=== PATIENT | female | born 1940 | race Hispanic/Latino ===

== ENCOUNTER 2017-08-19 17:23 | Inpatient (IN) | payer MEDICARE ==
[2017-08-19] MEDS ORDERED: Iohexol 240 (50 ml) PO ONE (19:09)
--- NOTE | 2017-08-19 19:34 | ED PDOC ---
HPI: General Adult Time Seen by Provider: 08/19/17 18:50 Chief Complaint (Nursing): Abdominal Pain History Per: Patient, Family (son), Other (Dr. Coelho) Additional Complaint(s): Pt. states for > 1 week she's had epigastric pain radiating to the back. Reports symptoms are worse after eating. States that she was seen in [facility] ED on Thursday and had blood work done and was subsequently discharged. She was contacted today by Dr. Coelho who told her to come to ED for further evaluation as she had +blood cultures. Denies chest pain, N/V/D, fever, SOB, palpitations. As per Dr. Coelho (phone conversation), pt. had gram positive cocci in chains via blood cultures and is requesting for pt. to be admitted. Past Medical History Reviewed: Historical Data, Nursing Documentation, Vital Signs Vital Signs: Last Vital Signs Temp 98.7 F 08/19/17 17:50 Pulse 78 08/19/17 17:50 Resp 16 08/19/17 17:50 BP 190/76 H 08/19/17 17:50 Pulse Ox 98 08/19/17 17:50 - Medical History PMH: Diabetes, Hypercholesterolemia Denies: Chronic Kidney Disease - Surgical History Surgical History: No Surg Hx - Family History Family History: States: Diabetes - Home Medications Home Medications: Ambulatory Orders Medication Instructions Recorded Glipizide [Glipizide ER] 10 mg PO DAILY 12/10/15 Insulin Glargine,Hum.rec.anlog 37 units SC DAILY 12/10/15 [Lantus] Metformin Hydrochloride [Metformin] 500 mg PO DAILY 12/10/15 Rosuvastatin Calcium [Crestor] 10 mg PO DAILY 12/10/15 Sitagliptin Phosphate [Januvia] 100 mg PO DAILY 12/10/15 Atorvastatin [Lipitor] 20 mg PO DAILY #0 tab 12/11/15 GlipiZIDE SR [Glucotrol XL] 10 mg PO DAILY@0800 #0 tab 12/11/15 SITagliptin [Januvia] 100 mg PO DAILY #0 tab 12/11/15 amLODIPine [Norvasc] 2.5 mg PO DAILY 12/11/15 amLODIPine [Norvasc] 2.5 mg PO DAILY #0 tab 12/11/15 - Allergies Allergies/Adverse Reactions: Allergies Allergy/AdvReac Type Severity Reaction Status Date / Time No Known Allergies Allergy Verified 12/10/15 15:58 Review of Systems ROS Statement: Except As Marked, All Systems Reviewed And Found Negative Gastrointestinal: Positive for: Abdominal Pain Physical Exam - Reviewed Nursing Documentation Reviewed: Yes Vital Signs Reviewed: Yes - Physical Exam Appears: Positive for: Well, Non-toxic, No Acute Distress Head Exam: Positive for: ATRAUMATIC, NORMAL INSPECTION, NORMOCEPHALIC Skin: Positive for: Normal Color, Warm. Negative for: Rash Eye Exam: Positive for: EOMI, Normal appearance, PERRL ENT: Positive for: Normal ENT Inspection Neck: Positive for: Normal, Painless ROM Cardiovascular/Chest: Positive for: Regular Rate, Rhythm Respiratory: Positive for: CNT, Normal Breath Sounds Gastrointestinal/Abdominal: Positive for: Normal Exam, Bowel Sounds, Soft. Negative for: Tenderness Back: Positive for: Normal Inspection Extremity: Positive for: Normal ROM Neurologic/Psych: Positive for: Alert, Oriented - ECG ECG: Positive for: Interpreted By Me ECG Rhythm: Positive for: Sinus Bradycardia. Negative for: ST/T Changes Rate: 59 O2 Sat by Pulse Oximetry: 98 - Radiology X-Ray: Interpreted by Me (CXR) - Progress ED Course And Treament: Case d/w Dr. Coelho who confirms story and requests that pt. be admitted. Requests CT abd/pelvis to be done and for pt. to be given Vancomycin IV after cultures. Labs ordered. CT abd/pelvis ordered. Disposition - Clinical Impression Clinical Impression: Abdominal pain in female - Patient ED Disposition Is Patient to be Admitted: Transfer of Care (Signed out to Tanisha BARON pending results.) - Disposition Disposition Time: 20:00 Condition: STABLE
[2017-08-19 19:55] LABS: BASO % 0.6 % (0.0-2.0); EOS # 0.1 K/uL (0.0-0.7); EOS % 1.7 % (0.0-4.0); LYMPH # 2.6 K/uL (1.0-4.3); LYMPH % 35.5 % (20.0-40.0); MEAN CELL VOLUME 92.4 fl (81.0-99.0); MEAN CORPUSCULAR HEMOGLOBIN 31.1 pg (27.0-31.0); MEAN CORPUSCULAR HGB CONC 33.7 g/dL (33.0-37.0); MEAN PLATELET VOLUME 8.5 fl (7.2-11.7); MONO # 0.7 K/uL (0.0-0.8); MONO % 9.7 % (0.0-10.0); NEUT # 3.9 K/uL (1.8-7.0); NEUT % 52.5 % (50.0-75.0); RED CELL DISTRIBUTION WIDTH 13.8 % (11.5-14.5); WHITE BLOOD COUNT 7.3 K/uL (4.8-10.8)
[2017-08-19 20:05] LABS: ALB/GLOB RATIO 1.6 (1.0-2.1); ALKALINE PHOSPHATASE 63 U/L (38-126); ALT/SGPT 31 U/L (9-52); AST/SGOT 28 U/L (14-36); BILIRUBIN,TOTAL 0.4 mg/dl (0.2-1.3); BLOOD UREA NITROGEN 13 mg/dl (7-17); CALCIUM 9.5 mg/dL (8.4-10.2); CARBON DIOXIDE 25 mmol/L (22-30); CHLORIDE 108 mmol/L (98-107); GFR AFRICAN-AMERICAN > 60; GLUCOSE,RANDOM 143 mg/dL (65-105); LIPASE 93 U/L (23-300); POTASSIUM 4.9 MMOL/L (3.6-5.0); SODIUM 143 mmol/l (132-148); TOTAL PROTEIN 6.8 G/DL (6.3-8.2)
[2017-08-19 20:11] LABS: VENOUS BLOOD GAS BASE EXCESS 0.1 mmol/L (0.0-2.0); VENOUS BLOOD GAS PCO2 56 mmHg (40-60)
[2017-08-19] MEDS ORDERED: Piperacillin/Tazobact 3.375 GM in Sodium Chloride 0.9% 100 ML IVPB STA (20:14)
[2017-08-19] MEDS ORDERED: Iohexol 240 (50 ml) ONE (20:14)
[2017-08-19 20:45] LABS: RBC URINE 2 /hpf (0-3); URINE BILIRUBIN NEGATIVE (NEGATIVE); URINE BLOOD NEGATIVE (NEGATIVE); URINE COLOR STRAW (YELLOW); URINE GLUCOSE (UA) NEG (Normal); URINE KETONE NEGATIVE (NEGATIVE); URINE LEUKOCYTE ESTERASE NEG Leu/uL (Negative); URINE PROTEIN NEGATIVE (NEGATIVE); URINE UROBILINOGEN 0.2-1.0 mg/dL (0.2-1.0); WBC URINE < 1 /hpf (0-5)
[2017-08-19] MEDS ORDERED: Piperacillin/Tazobact 3.375 gm Inj IVPB ONE (21:00)
[2017-08-19] MEDS ORDERED: Iohexol 300 100 ML IJ ONE (21:21)
[2017-08-19] MEDS ORDERED: Sodium Chloride 0.9% 50 ML IV ONE (21:21)
--- NOTE | 2017-08-19 22:29 | CT ---
EXAM: CT Abdomen and Pelvis With Intravenous Contrast EXAM DATE/TIME: 08/19/2017 7:09 PM CLINICAL HISTORY: 77 years old, female; Pain; Abdominal pain; Epigastric; Additional info: Epigastric abdominal pain TECHNIQUE: Axial computed tomography images of the abdomen and pelvis with intravenous contrast. All CT scans at this facility use one or more dose reduction techniques, viz.: automated exposure control; ma/kV adjustment per patient size (including targeted exams where dose is matched to indication; i.e. head); or iterative reconstruction technique. Coronal and sagittal reformatted images were created and reviewed. CONTRAST: 90 mL of [id number] administered intravenously. COMPARISON: CT - ABD PELVIS PO IV CONTRAST 12/10/2015 7:44:30 PM FINDINGS: The liver is normal. The spleen is normal. The pancreas is normal. No gallstones. A horseshoe kidney is present. The small bowel appears normal. A moderate amount of stool is present throughout the colon. A normal appendix is identified axial images 105 - 114. Again seen is very faint increase density within the mesentery of the left upper quadrant with a few small scattered lymph nodes unchanged. Again seen is a right adnexal mass composed mainly of fat density however also containing peripheral calcification. It is unchanged in size measuring 4.1 x 3.1 cm and has imaging characteristics supportive of a dermoid. Extensive degenerative changes are present in the line with large osteophyte formation L1-L3. IMPRESSION: No acute findings.
--- NOTE | 2017-08-19 22:54 | ED PDOC ---
- Laboratory Results Result Diagrams: 08/19/17 19:30 08/19/17 19:30 - ECG O2 Sat by Pulse Oximetry: 98 - Progress ED Course And Treament: Case endorsed to content writer from Tess BARON pending CT and admission. EXAM: CT Abdomen and Pelvis With Intravenous Contrast EXAM DATE/TIME: 08/19/2017 7:09 PM CLINICAL HISTORY: 77 years old, female; Pain; Abdominal pain; Epigastric; Additional info: Epigastric abdominal pain TECHNIQUE: Axial computed tomography images of the abdomen and pelvis with intravenous contrast. All CT scans at this facility use one or more dose reduction techniques, viz.: automated exposure control; ma/kV adjustment per patient size (including targeted exams where dose is matched to indication; i.e. head); or iterative reconstruction technique. Coronal and sagittal reformatted images were created and reviewed. CONTRAST: 90 mL of administered intravenously. COMPARISON: CT - ABD PELVIS PO IV CONTRAST 12/10/2015 7:44:30 PM FINDINGS: The liver is normal. The spleen is normal. The pancreas is normal. No gallstones. A horseshoe kidney is present. The small bowel appears normal. A moderate amount of stool is present throughout the colon. A normal appendix is identified axial images 105 - 114. Again seen is very faint increase density within the mesentery of the left upper quadrant with a few small scattered lymph nodes unchanged. Again seen is a right adnexal mass composed mainly of fat density however also containing peripheral calcification. It is unchanged in size measuring 4.1 x 3.1 cm and has imaging characteristics supportive of a dermoid. Extensive degenerative changes are present in the line with large osteophyte formation L1-L3. IMPRESSION: No acute findings. Patient to be admitted as discussed on previous shift. Disposition - Clinical Impression Clinical Impression: Abdominal pain in female, Bacteremia - POA Present On Arrival: None - Disposition Disposition: Routine/Home Disposition Time: 23:28 Condition: FAIR
[2017-08-19] MEDS ORDERED: DiphenhydrAMINE 50 mg/ml Inj IV ONE (23:42)
[2017-08-20] MEDS ORDERED: GlipiZIDE 10 mg SR Tab PO SCH (09:00)
[2017-08-20] MEDS: Insulin Regular 100 units/ml SC SCH ×4 (09:20→22:36)
[2017-08-20] MEDS: Enoxaparin 40 mg Syringe SC SCH (09:21)
[2017-08-20] MEDS: GlipiZIDE 5 mg SR Tab PO SCH (09:22)
[2017-08-20] MEDS: Piperacillin/Tazobact 3.375 GM in Sodium Chloride 0.9% 100 ML IVPB SCH ×2 (10:03→21:11)
--- NOTE | 2017-08-20 10:16 | RAD ---
HISTORY: epigastric abdominal pain COMPARISON: Comparison is made to 05/31/2015 so FINDINGS: LUNGS: No active pulmonary disease. PLEURA: No significant pleural effusion identified, no pneumothorax apparent. CARDIOVASCULAR: Normal. OSSEOUS STRUCTURES: No significant abnormalities. VISUALIZED UPPER ABDOMEN: Normal. OTHER FINDINGS: None. IMPRESSION: No active disease.
--- NOTE | 2017-08-20 10:48 | CARD ---
APPROVED REPORT EKG Measurement Heart [id number] <Conclusion> Sinus bradycardia Moderate voltage criteria for LVH, may be normal variant Borderline ECG
--- NOTE | 2017-08-20 12:21 | CP.PCM.HP ---
History of Present Illness - History of Present Illness History of Present Illness: Patient c/o same generalized malaise with abdominal pain and weakness. She was seen in ER and eventually discharged. In ER she had a blood culture that was positive for gram positive cocci in chain. The patient was admired for further evaluation and IV antibx. Previously she was treated with oral broad spectrum antibx with no resolution of the general symptoms. Will follow culture and sensitivity. She had an allergic reaction to vancomicin. Patient with severe co morbidity DM, CAD, HTN. Present on Admission - Present on Admission Any Indicators Present on Admission: No Review of Systems - Constitutional Constitutional: As Per HPI - EENT Eyes: As Per HPI - Cardiovascular Cardiovascular: As Per HPI - Respiratory Respiratory: As Per HPI - Gastrointestinal Gastrointestinal: As Per HPI - Musculoskeletal Musculoskeletal: As Per HPI - Integumentary Integumentary: As Per HPI - Neurological Neurological: As Per HPI - Psychiatric Psychiatric: As Per HPI Past Patient History - Past Medical History & Family History Past Medical History?: Yes - Past Social History Smoking Status: Never Smoked - CARDIAC Hx Hypercholesterolemia: Yes - PULMONARY Hx Respiratory Disorders: No Other/Comment: influenza - NEUROLOGICAL Hx Neurological Disorder: No - HEENT Hx HEENT Problems: No - RENAL Hx Chronic Kidney Disease: No - ENDOCRINE/METABOLIC Hx Endocrine Disorders: Yes Hx Diabetes Mellitus Type 2: Yes Other/Comment: peripheral neuropathy, ketosis - HEMATOLOGICAL/ONCOLOGICAL Hx Blood Disorders: No Hx Hepatitis C: Yes - INTEGUMENTARY Hx Dermatological Problems: No - MUSCULOSKELETAL/RHEUMATOLOGICAL Hx Musculoskeletal Disorders: No Hx Falls: No - GASTROINTESTINAL Hx Gastrointestinal Disorders: No - GENITOURINARY/GYNECOLOGICAL Hx Genitourinary Disorders: No - PSYCHIATRIC Hx Psychophysiologic Disorder: No Hx Substance Use: No - SURGICAL HISTORY Hx Surgeries: Yes Other/Comment: toe surgery - ANESTHESIA Hx Anesthesia: No Hx Anesthesia Reactions: No Hx Malignant Hyperthermia: No Meds Allergies/Adverse Reactions: Allergies Allergy/AdvReac Type Severity Reaction Status Date / Time No Known Allergies Allergy Verified 12/10/15 15:58 Physical Exam - Constitutional Appears: Non-toxic - Head Exam Head Exam: ATRAUMATIC, NORMAL INSPECTION, NORMOCEPHALIC - Eye Exam Eye Exam: Normal appearance - ENT Exam ENT Exam: Mucous Membranes Moist - Neck Exam Neck exam: Positive for: Full Rom - Respiratory Exam Respiratory Exam: Clear to Auscultation Bilateral - Cardiovascular Exam Cardiovascular Exam: REGULAR RHYTHM, +S1, +S2 - GI/Abdominal Exam GI & Abdominal Exam: Normal Bowel Sounds - Neurological Exam Neurological exam: Alert, CN II-XII Intact, Oriented x3 Results - Vital Signs Recent Vital Signs: Last Vital Signs Temp 98.6 F 08/20/17 07:40 Pulse 71 08/20/17 09:21 Resp 18 08/20/17 07:40 BP 134/78 08/20/17 09:21 Pulse Ox 99 08/20/17 07:40 - Labs Result Diagrams: 08/19/17 19:30 08/19/17 19:30 Labs: Laboratory Results - last 24 hr 08/19/17 08/19/17 08/19/17 19:30 19:30 19:30 WBC 7.3 RBC 4.11 Hgb 12.8 Hct 38.0 MCV 92.4 MCH 31.1 H MCHC 33.7 RDW 13.8 Plt Count 230 MPV 8.5 Neut % (Auto) 52.5 Lymph % (Auto) 35.5 [place] % (Auto) 9.7 Eos % (Auto) 1.7 Baso % (Auto) 0.6 Neut # 3.9 Lymph # 2.6 [place] # 0.7 Eos # 0.1 Baso # 0.0 pO2 VBG pH VBG pCO2 VBG HCO3 VBG Total CO2 VBG O2 Sat (Calc) VBG Base Excess VBG Potassium Glucose Lactate FiO2 Sodium 143 Potassium 4.9 Chloride 108 H Carbon Dioxide 25 Anion Gap 15 BUN 13 Creatinine 0.7 Est GFR ( Amer) > 60 Est GFR (Non-Af Amer) > 60 POC Glucose (mg/dL) 167 H Random Glucose 143 H Calcium 9.5 Total Bilirubin 0.4 AST 28 ALT 31 Alkaline Phosphatase 63 Troponin I < 0.0120 Total Protein 6.8 Albumin 4.2 Globulin 2.6 Albumin/Globulin Ratio 1.6 Lipase 93 TSH 3rd Generation Venous Blood Potassium Urine Color Urine Clarity Urine pH Ur Specific [place] Urine Protein Urine Glucose (UA) Urine Ketones Urine Blood Urine Nitrate Urine Bilirubin Urine Urobilinogen Ur Leukocyte Esterase Urine RBC (Auto) Urine Microscopic WBC 08/19/17 08/19/17 08/20/17 20:00 20:26 04:54 WBC RBC Hgb Hct MCV MCH MCHC RDW Plt Count MPV Neut % (Auto) Lymph % (Auto) [place] % (Auto) Eos % (Auto) Baso % (Auto) Neut # Lymph # [place] # Eos # Baso # pO2 19 L VBG pH 7.30 L VBG pCO2 56 VBG HCO3 23.0 VBG Total CO2 29.3 H VBG O2 Sat (Calc) 31.3 L VBG Base Excess 0.1 VBG Potassium 4.1 Glucose 147 H Lactate 1.9 FiO2 21.0 Sodium 142.0 Potassium Chloride 107.0 Carbon Dioxide Anion Gap BUN Creatinine Est GFR ( Amer) Est GFR (Non-Af Amer) POC Glucose (mg/dL) 33 L* Random Glucose Calcium Total Bilirubin AST ALT Alkaline Phosphatase Troponin I Total Protein Albumin Globulin Albumin/Globulin Ratio Lipase TSH 3rd Generation Venous Blood Potassium 4.1 Urine Color Straw Urine Clarity Clear Urine pH 6.0 Ur Specific [place] 1.011 Urine Protein Negative Urine Glucose (UA) Neg Urine Ketones Negative Urine Blood Negative Urine Nitrate Negative Urine Bilirubin Negative Urine Urobilinogen 0.2-1.0 Ur Leukocyte Esterase Neg Urine RBC (Auto) 2 Urine Microscopic WBC < 1 08/20/17 08/20/17 08/20/17 05:45 07:55 10:34 WBC RBC Hgb Hct MCV MCH MCHC RDW Plt Count MPV Neut % (Auto) Lymph % (Auto) [place] % (Auto) Eos % (Auto) Baso % (Auto) Neut # Lymph # [place] # Eos # Baso # pO2 VBG pH VBG pCO2 VBG HCO3 VBG Total CO2 VBG O2 Sat (Calc) VBG Base Excess VBG Potassium Glucose Lactate FiO2 Sodium Potassium Chloride Carbon Dioxide Anion Gap BUN Creatinine Est GFR ( Amer) Est GFR (Non-Af Amer) POC Glucose (mg/dL) 123 H 179 H Random Glucose Calcium Total Bilirubin AST ALT Alkaline Phosphatase Troponin I Total Protein Albumin Globulin Albumin/Globulin Ratio Lipase TSH 3rd Generation 3.75 Venous Blood Potassium Urine Color Urine Clarity Urine pH Ur Specific [place] Urine Protein Urine Glucose (UA) Urine Ketones Urine Blood Urine Nitrate Urine Bilirubin Urine Urobilinogen Ur Leukocyte Esterase Urine RBC (Auto) Urine Microscopic WBC Assessment & Plan (1) Bacteremia Status: Acute (2) Abdominal pain Status: Acute (3) Diabetes Status: Chronic (4) Hyperglycemia Status: Chronic (5) Sepsis Status: Acute (6) Hypertensive cardiovascular disease Status: Chronic - Assessment and Plan (Free Text) Plan: As per orders.
--- NOTE | 2017-08-20 13:29 | CARD ---
APPROVED REPORT EXAM: Two-dimensional and M-mode echocardiogram with Doppler and color Doppler. Other Information Quality : GoodRhythm : NSR INDICATION Hypertension/HCVD 2D DIMENSIONS Left Atrium (2D)3.07 (1.6-4.0cm)IVSd1.40 (0.7-1.1cm) LVDd3.62 (3.9-5.9cm)LVOT Diameter1.98 (1.8-2.4cm) PWd1.15 (0.7-1.1cm)IVSs1.46 (0.8-1.2cm) LVDs3.49 (2.5-4.0cm)FS (%) 3.4 % PWs0.91 (0.8-1.2cm) M-Mode DIMENSIONS Left Atrium (MM)3.35 (2.5-4.0cm)IVSd0.85 (0.7-1.1cm) Aortic Root2.88 (2.2-3.7cm)LVDd5.44 (4.0-5.6cm) Aortic Cusp Exc.1.71 (1.5-2.0cm)PWd0.78 (0.7-1.1cm) IVSs1.10 cmFS (%) 21 % LVDs4.32 (2.0-3.8cm)PWs1.00 cm Mitral Valve MV E Zdskhfzc29.1cm/sMV DECEL [id number] A Wadoifto52.8cm/s MV [id number]/A ratio1.0MVA (PHT)2.86cm2 TDI Lateral E' Peak V9.61cm/sMedial E' Peak V8.56cm/sE/Lateral E'8.3 E/Medial E'9.4 Pulmonary Valve PV Peak Tgpwnlek22.3cm/s Tricuspid Valve TR Peak [id number]/sRAP [id number] Peak Gr.19mmHg [id number] LEFT VENTRICLE The left ventricle is normal size. There is normal left ventricular wall thickness. The left ventricular function is normal. The left ventricular ejection fraction is within the normal range. The Ejection Fraction is 45-50%. There is normal LV segmental wall motion. The left ventricular diastolic function is normal. No left ventricle thrombus noted on this study. There is no mass noted in the left ventricle. RIGHT VENTRICLE The right ventricle is normal size. There is normal right ventricular wall thickness. The right ventricular systolic function is normal. ATRIA The left atrium size is normal. The right atrium size is normal. The interatrial septum is intact with no evidence for an atrial septal defect. AORTIC VALVE The aortic valve is normal in structure and function. No aortic regurgitation is present. There is no aortic valvular stenosis. There is no aortic valvular vegetation. MITRAL VALVE The mitral valve is normal in structure and function. There is no evidence of mitral valve prolapse. There is no mitral valve stenosis. Mitral regurgitation is mild to moderate. TRICUSPID VALVE The tricuspid valve is normal in structure and function. There is no tricuspid valve regurgitation noted. There is no tricuspid valve prolapse or vegetation. There is no tricuspid valve stenosis. PULMONIC VALVE The pulmonary valve is normal in structure and function. There is no pulmonic valvular regurgitation. There is no pulmonic valvular stenosis. GREAT VESSELS The aortic root is normal in size. The IVC is normal in size and collapses >50% with inspiration. PERICARDIAL EFFUSION The pericardium appears normal. There is no pleural effusion. <Conclusion> The left ventricle is normal size. The left ventricular function is normal. The left ventricular ejection fraction is within the normal range. The Ejection Fraction is 45-50%. Mitral regurgitation is mild to moderate.
--- NOTE | 2017-08-20 13:45 | CP.PCM.CON ---
History of Present Illness - History of Present Illness History of Present Illness: Consult requested for evaluation of bacterial endocarditis HPI : 77-year-old [place] female with past medical history significant for diabetes mellitus who was recently seen in [facility] emergency room for evaluation of abdominal discomfort. She had undergone blood cultures which were reported to be positive for gram- positive cocci in clusters. On day 1 she developed some abdominal discomfort and had an episode of emesis. She was subsequently discharged home. Prior to that she was treated for uterine urinary tract infection by Dr. Coelho with IV with p.o. antibiotic course for a week. On this admission she denies having any chest pain shortness of breath palpitations dizziness syncope fevers chills nausea vomiting or diarrhea. Review of Systems - Review of Systems All systems: reviewed and no additional remarkable complaints except - Constitutional Constitutional: As Per HPI - EENT Eyes: As Per HPI Ears: As Per HPI Nose/Mouth/Throat: As Per HPI - Breasts Breasts: As Per HPI - Cardiovascular Cardiovascular: As Per HPI - Respiratory Respiratory: As Per HPI - Gastrointestinal Gastrointestinal: As Per HPI - Genitourinary Genitourinary: As Per HPI - Reproductive: Female Reproductive:Female: As Per HPI - Menstruation Menstruation: As Per HPI - Musculoskeletal Musculoskeletal: As Per HPI - Integumentary Integumentary: As Per HPI - Neurological Neurological: As Per HPI - Psychiatric Psychiatric: As Per HPI - Endocrine Endocrine: As Per HPI - Hematologic/Lymphatic Hematologic: As Per HPI Past Patient History - Past Medical History & Family History Past Medical History?: Yes Pertinent Family History: +ve for HTN - Past Social History Smoking Status: Never Smoked - CARDIAC Hx Hypercholesterolemia: Yes - PULMONARY Hx Respiratory Disorders: No Other/Comment: influenza - NEUROLOGICAL Hx Neurological Disorder: No - HEENT Hx HEENT Problems: No - RENAL Hx Chronic Kidney Disease: No - ENDOCRINE/METABOLIC Hx Endocrine Disorders: Yes Hx Diabetes Mellitus Type 2: Yes Other/Comment: peripheral neuropathy, ketosis - HEMATOLOGICAL/ONCOLOGICAL Hx Blood Disorders: No Hx Hepatitis C: Yes - INTEGUMENTARY Hx Dermatological Problems: No - MUSCULOSKELETAL/RHEUMATOLOGICAL Hx Musculoskeletal Disorders: No Hx Falls: No - GASTROINTESTINAL Hx Gastrointestinal Disorders: No - GENITOURINARY/GYNECOLOGICAL Hx Genitourinary Disorders: No - PSYCHIATRIC Hx Psychophysiologic Disorder: No Hx Substance Use: No - SURGICAL HISTORY Hx Surgeries: Yes Other/Comment: toe surgery - ANESTHESIA Hx Anesthesia: No Hx Anesthesia Reactions: No Hx Malignant Hyperthermia: No Meds Allergies/Adverse Reactions: Allergies Allergy/AdvReac Type Severity Reaction Status Date / Time vancomycin Allergy ITCHING Verified 08/20/17 13:59 - Medications Medications: Current Medications Amlodipine Besylate (Norvasc) 2.5 mg PO DAILY [facility] Last Admin: 08/20/17 09:21 Dose: 2.5 mg Enoxaparin Sodium (Lovenox) 40 mg SC DAILY [facility] PRN Reason: Protocol Stop: 08/23/17 23:59 Last Admin: 08/20/17 09:21 Dose: 40 mg Glipizide (Glucotrol Xl) 5 mg PO DAILY [facility] Last Admin: 08/20/17 09:22 Dose: 5 mg Piperacillin Sod/Tazobactam (Sod 3.375 gm/ Sodium Chloride) 100 mls @ 100 mls/ hr IVPB Q12 [facility] Stop: 08/23/17 23:59 Last Admin: 08/20/17 10:03 Dose: 100 mls/hr Insulin Human Regular (Humulin R) 0 units SC ACCU-CHECK [facility] PRN Reason: Protocol Last Admin: 08/20/17 09:20 Dose: Not Given Lactobacillus Acidophilus (Bacid Acidophilus) 1 cap PO BID [facility] Metformin HCl (Glucophage) 500 mg PO DAILY [facility] Last Admin: 08/20/17 09:19 Dose: Not Given Sitagliptin Phosphate (Januvia) 100 mg PO DAILY [facility] Last Admin: 08/20/17 09:22 Dose: 100 mg Physical Exam - Constitutional Appears: Well - Head Exam Head Exam: ATRAUMATIC, NORMAL INSPECTION, NORMOCEPHALIC - Eye Exam Eye Exam: EOMI, Normal appearance, PERRL Pupil Exam: NORMAL ACCOMODATION, PERRL - ENT Exam ENT Exam: Mucous Membranes Moist, Normal Exam - Neck Exam Neck exam: Positive for: Normal Inspection - Respiratory Exam Respiratory Exam: Clear to Auscultation Bilateral, NORMAL BREATHING PATTERN - Cardiovascular Exam Cardiovascular Exam: REGULAR RHYTHM, +S1, +S2, Systolic Murmur - GI/Abdominal Exam GI & Abdominal Exam: Normal Bowel Sounds, Soft. absent: Tenderness - Rectal Exam Rectal Exam: NORMAL INSPECTION - Extremities Exam Extremities exam: Positive for: normal inspection - Back Exam Back exam: NORMAL INSPECTION - Neurological Exam Neurological exam: Alert, CN II-XII Intact, Normal Gait, Oriented x3, Reflexes Normal - Psychiatric Exam Psychiatric exam: Normal Affect, Normal Mood - Skin Skin Exam: Dry, Intact, Normal Color, Warm Results - Vital Signs Recent Vital Signs: Last Vital Signs Temp 98.6 F 08/20/17 07:40 Pulse 71 08/20/17 09:21 Resp 18 08/20/17 07:40 BP 134/78 08/20/17 09:21 Pulse Ox 99 08/20/17 07:40 - Labs Result Diagrams: 08/19/17 19:30 08/19/17 19:30 Labs: Laboratory Results - last 24 hr 08/19/17 08/19/17 08/19/17 19:30 19:30 19:30 WBC 7.3 RBC 4.11 Hgb 12.8 Hct 38.0 MCV 92.4 MCH 31.1 H MCHC 33.7 RDW 13.8 Plt Count 230 MPV 8.5 Neut % (Auto) 52.5 Lymph % (Auto) 35.5 [place] % (Auto) 9.7 Eos % (Auto) 1.7 Baso % (Auto) 0.6 Neut # 3.9 Lymph # 2.6 [place] # 0.7 Eos # 0.1 Baso # 0.0 pO2 VBG pH VBG pCO2 VBG HCO3 VBG Total CO2 VBG O2 Sat (Calc) VBG Base Excess VBG Potassium Glucose Lactate FiO2 Sodium 143 Potassium 4.9 Chloride 108 H Carbon Dioxide 25 Anion Gap 15 BUN 13 Creatinine 0.7 Est GFR ( Amer) > 60 Est GFR (Non-Af Amer) > 60 POC Glucose (mg/dL) 167 H Random Glucose 143 H Calcium 9.5 Total Bilirubin 0.4 AST 28 ALT 31 Alkaline Phosphatase 63 Troponin I < 0.0120 Total Protein 6.8 Albumin 4.2 Globulin 2.6 Albumin/Globulin Ratio 1.6 Lipase 93 TSH 3rd Generation Venous Blood Potassium Urine Color Urine Clarity Urine pH Ur Specific [place] Urine Protein Urine Glucose (UA) Urine Ketones Urine Blood Urine Nitrate Urine Bilirubin Urine Urobilinogen Ur Leukocyte Esterase Urine RBC (Auto) Urine Microscopic WBC 08/19/17 08/19/17 08/20/17 20:00 20:26 04:54 WBC RBC Hgb Hct MCV MCH MCHC RDW Plt Count MPV Neut % (Auto) Lymph % (Auto) [place] % (Auto) Eos % (Auto) Baso % (Auto) Neut # Lymph # [place] # Eos # Baso # pO2 19 L VBG pH 7.30 L VBG pCO2 56 VBG HCO3 23.0 VBG Total CO2 29.3 H VBG O2 Sat (Calc) 31.3 L VBG Base Excess 0.1 VBG Potassium 4.1 Glucose 147 H Lactate 1.9 FiO2 21.0 Sodium 142.0 Potassium Chloride 107.0 Carbon Dioxide Anion Gap BUN Creatinine Est GFR ( Amer) Est GFR (Non-Af Amer) POC Glucose (mg/dL) 33 L* Random Glucose Calcium Total Bilirubin AST ALT Alkaline Phosphatase Troponin I Total Protein Albumin Globulin Albumin/Globulin Ratio Lipase TSH 3rd Generation Venous Blood Potassium 4.1 Urine Color Straw Urine Clarity Clear Urine pH 6.0 Ur Specific [place] 1.011 Urine Protein Negative Urine Glucose (UA) Neg Urine Ketones Negative Urine Blood Negative Urine Nitrate Negative Urine Bilirubin Negative Urine Urobilinogen 0.2-1.0 Ur Leukocyte Esterase Neg Urine RBC (Auto) 2 Urine Microscopic WBC < 1 08/20/17 08/20/17 08/20/17 05:45 07:55 10:34 WBC RBC Hgb Hct MCV MCH MCHC RDW Plt Count MPV Neut % (Auto) Lymph % (Auto) [place] % (Auto) Eos % (Auto) Baso % (Auto) Neut # Lymph # [place] # Eos # Baso # pO2 VBG pH VBG pCO2 VBG HCO3 VBG Total CO2 VBG O2 Sat (Calc) VBG Base Excess VBG Potassium Glucose Lactate FiO2 Sodium Potassium Chloride Carbon Dioxide Anion Gap BUN Creatinine Est GFR ( Amer) Est GFR (Non-Af Amer) POC Glucose (mg/dL) 123 H 179 H Random Glucose Calcium Total Bilirubin AST ALT Alkaline Phosphatase Troponin I Total Protein Albumin Globulin Albumin/Globulin Ratio Lipase TSH 3rd Generation 3.75 Venous Blood Potassium Urine Color Urine Clarity Urine pH Ur Specific [place] Urine Protein Urine Glucose (UA) Urine Ketones Urine Blood Urine Nitrate Urine Bilirubin Urine Urobilinogen Ur Leukocyte Esterase Urine RBC (Auto) Urine Microscopic WBC Assessment & Plan (1) Bacteremia Assessment and Plan: will f/u echo if repeat Cx +ve will need OLIMPIA for further evaluation Abx per ID and Status: Acute (2) Sepsis Status: Acute (3) Hypertensive cardiovascular disease Status: Chronic (4) Abdominal pain Status: Acute (5) Chest pain Status: Acute
[2017-08-20] MEDS: Lactobacillus Acidophilus 500 MU Cap PO SCH (16:47)
[2017-08-21] MEDS: Insulin Regular 100 units/ml SC SCH ×4 (07:00→21:59)
[2017-08-21] MEDS: GlipiZIDE 5 mg SR Tab PO SCH (09:56)
[2017-08-21] MEDS: Lactobacillus Acidophilus 500 MU Cap PO SCH ×2 (09:56→17:00)
[2017-08-21] MEDS: Enoxaparin 40 mg Syringe SC SCH (09:56)
[2017-08-21] MEDS: Piperacillin/Tazobact 3.375 GM in Sodium Chloride 0.9% 100 ML IVPB SCH (09:57)
--- NOTE | 2017-08-21 11:09 | CP.PCM.PN ---
Subjective - Date & Time of Evaluation Date of Evaluation: 08/21/17 Time of Evaluation: 11:09 - Subjective Subjective: blood cx +ve for strep salivarus no complaints clinically stable Objective - Vital Signs/Intake and Output Vital Signs (last 24 hours): Temp Pulse Resp BP Pulse Ox 98.4 F 65 20 128/69 97 08/21/17 08:02 08/21/17 09:56 08/21/17 08:02 08/21/17 09:56 08/21/17 08:02 - Medications Medications: Current Medications Amlodipine Besylate (Norvasc) 2.5 mg PO DAILY [facility] Last Admin: 08/21/17 09:56 Dose: 2.5 mg Enoxaparin Sodium (Lovenox) 40 mg SC DAILY [facility] PRN Reason: Protocol Stop: 08/23/17 23:59 Last Admin: 08/21/17 09:56 Dose: 40 mg Glipizide (Glucotrol Xl) 5 mg PO DAILY [facility] Last Admin: 08/21/17 09:56 Dose: 5 mg Piperacillin Sod/Tazobactam (Sod 3.375 gm/ Sodium Chloride) 100 mls @ 100 mls/ hr IVPB Q12 [facility] Stop: 08/23/17 23:59 Last Admin: 08/21/17 09:57 Dose: 100 mls/hr Insulin Human Regular (Humulin R) 0 units SC ACCU-CHECK [facility] PRN Reason: Protocol Last Admin: 08/21/17 07:00 Dose: Not Given Lactobacillus Acidophilus (Bacid Acidophilus) 1 cap PO BID [facility] Last Admin: 08/21/17 09:56 Dose: 1 cap Metformin HCl (Glucophage) 500 mg PO DAILY [facility] Last Admin: 08/20/17 09:19 Dose: Not Given Sitagliptin Phosphate (Januvia) 100 mg PO DAILY [facility] Last Admin: 08/21/17 09:56 Dose: 100 mg - Labs Labs: 08/19/17 19:30 08/19/17 19:30 - Constitutional Appears: Well - Head Exam Head Exam: ATRAUMATIC, NORMAL INSPECTION, NORMOCEPHALIC - Eye Exam Eye Exam: EOMI, Normal appearance, PERRL Pupil Exam: NORMAL ACCOMODATION, PERRL - ENT Exam ENT Exam: Mucous Membranes Moist, Normal Exam - Neck Exam Neck Exam: Full ROM, Normal Inspection. absent: Lymphadenopathy - Respiratory Exam Respiratory Exam: Clear to Ausculation Bilateral, NORMAL BREATHING PATTERN - Cardiovascular Exam Cardiovascular Exam: REGULAR RHYTHM, +S1, +S2, Murmur - GI/Abdominal Exam GI & Abdominal Exam: Soft, Normal Bowel Sounds. absent: Tenderness - Extremities Exam Extremities Exam: Full ROM, Normal Capillary Refill, Normal Inspection. absent : Joint Swelling, Pedal Edema - Back Exam Back Exam: NORMAL INSPECTION - Neurological Exam Neurological Exam: Alert, Awake, CN II-XII Intact, Oriented x3 - Psychiatric Exam Psychiatric exam: Normal Affect, Normal Mood - Skin Skin Exam: Dry, Intact, Normal Color, Warm Assessment and Plan (1) Bacteremia Assessment & Plan: +ve Strep salivaris OLIMPIA on thursday Status: Acute (2) Sepsis Assessment & Plan: abx per ID Status: Acute (3) Hypertensive cardiovascular disease Assessment & Plan: home meds Status: Chronic (4) Abdominal pain Status: Acute (5) Chest pain Status: Acute
--- NOTE | 2017-08-21 12:23 | CP.PCM.PN ---
Subjective - Date & Time of Evaluation Date of Evaluation: 08/21/17 Time of Evaluation: 12:23 - Subjective Subjective: No new c/o. Blood culture still pending Objective - Vital Signs/Intake and Output Vital Signs (last 24 hours): Temp Pulse Resp BP Pulse Ox 98.4 F 65 20 128/69 97 08/21/17 08:02 08/21/17 09:56 08/21/17 08:02 08/21/17 09:56 08/21/17 08:02 - Medications Medications: Current Medications Amlodipine Besylate (Norvasc) 2.5 mg PO DAILY [facility] Last Admin: 08/21/17 09:56 Dose: 2.5 mg Enoxaparin Sodium (Lovenox) 40 mg SC DAILY [facility] PRN Reason: Protocol Stop: 08/23/17 23:59 Last Admin: 08/21/17 09:56 Dose: 40 mg Glipizide (Glucotrol Xl) 5 mg PO DAILY [facility] Last Admin: 08/21/17 09:56 Dose: 5 mg Piperacillin Sod/Tazobactam (Sod 3.375 gm/ Sodium Chloride) 100 mls @ 100 mls/ hr IVPB Q12 [facility] Stop: 08/23/17 23:59 Last Admin: 08/21/17 09:57 Dose: 100 mls/hr Insulin Human Regular (Humulin R) 0 units SC ACCU-CHECK [facility] PRN Reason: Protocol Last Admin: 08/21/17 07:00 Dose: Not Given Lactobacillus Acidophilus (Bacid Acidophilus) 1 cap PO BID [facility] Last Admin: 08/21/17 09:56 Dose: 1 cap Metformin HCl (Glucophage) 500 mg PO DAILY [facility] Last Admin: 08/20/17 09:19 Dose: Not Given Sitagliptin Phosphate (Januvia) 100 mg PO DAILY [facility] Last Admin: 08/21/17 09:56 Dose: 100 mg - Labs Labs: 08/19/17 19:30 08/19/17 19:30 - Constitutional Appears: Non-toxic - Head Exam Head Exam: ATRAUMATIC, NORMAL INSPECTION, NORMOCEPHALIC - Eye Exam Eye Exam: Normal appearance - ENT Exam ENT Exam: Mucous Membranes Moist - Respiratory Exam Respiratory Exam: Clear to Ausculation Bilateral - Cardiovascular Exam Cardiovascular Exam: REGULAR RHYTHM, +S1, +S2 - GI/Abdominal Exam GI & Abdominal Exam: Soft, Normal Bowel Sounds - Neurological Exam Neurological Exam: Alert, Awake, CN II-XII Intact, Normal Gait, Oriented x3 - Psychiatric Exam Psychiatric exam: Normal Affect Assessment and Plan (1) Bacteremia Status: Acute (2) Abdominal pain Status: Acute (3) Diabetes Status: Chronic (4) Hyperglycemia Status: Chronic (5) Sepsis Status: Acute (6) Hypertensive cardiovascular disease Status: Chronic - Assessment and Plan (Free Text) Plan: Will follow B/C
--- NOTE | 2017-08-21 12:37 | CP.PCM.CON ---
History of Present Illness - History of Present Illness History of Present Illness: 77-year-old [place] female with past medical history significant for diabetes mellitus and Hepatitis C ( Rx 2014 [place]) who was recently seen in [facility] emergency room for evaluation of abdominal discomfort. She had undergone blood cultures which were reported to be positive for gram- positive cocci . On day 1 she developed some abdominal discomfort and had an episode of emesis. She was subsequently discharged home. Prior to that she was treated for uterine urinary tract infection by Dr. Coelho with IV with p.o. antibiotic course for a week. blood c/s + strep salivarius Review of Systems - Review of Systems All systems: reviewed and no additional remarkable complaints except - Constitutional Constitutional: As Per HPI, Anorexia, Chills - EENT Eyes: absent: As Per HPI, Blind Spots, Blurred Vision, Change in Vision, Decreased Night Vision, Diplopia, Discharge, Dry Eye, Exophthalmos, Floaters, Irritation, Itchy Eyes, Loss of Peripheral Vision, Pain, Photophobia, Requires Corrective Lenses, Sees Flashes, Spots in Vision, Tunnel Vision, Other Visual Disturbances, Loss of Vision, Other Ears: absent: As Per HPI, Decreased Hearing, Ear Discharge, Ear Pain, Tinnitus, Abnormal Hearing, Disequilibrium, Dizziness, Other Nose/Mouth/Throat: absent: As Per HPI, Epistaxis, Nasal Congestion, Nasal Discharge, Nasal Obstruction, Nasal Trauma, Nose Pain, Post Nasal Drip, Sinus Pain, Sinus Pressure, Bleeding Gums, Change in Voice, Dental Pain, Dry Mouth, Dysphagia, Halitosis, Hoarsness, Lip Swelling, Mouth Lesions, Mouth Pain, Odynophagia, Sore Throat, Throat Swelling, Tongue Swelling, Facial Pain, Neck Pain, Neck Mass, Other - Breasts Breasts: absent: As Per HPI, Change in Shape, Mass, Pain, Nipple Discharge, Nipple Inversion, Skin Changes, Swelling, Other - Cardiovascular Cardiovascular: absent: As Per HPI, Acrocyanosis, Chest Pain, Chest Pain at Rest , Chest Pain with Activity, Claudication, Diaphoresis, Dyspnea, Dyspnea on Exertion, Edema, Irregular Heart Rhythm, Pain Radiating to Arm/Neck/Jaw, Leg Edema, Leg Ulcers, Lightheadedness, Orthopnea, Palpitations, Paroxysmal Nocturnal Dyspnea, Pedal Edema, Radiating Pain, Rapid Heart Rate, Slow Heart Rate, Syncope, Other - Respiratory Respiratory: absent: As Per HPI, Cough, Dyspnea, Hemoptysis, Dyspnea on Exertion , Wheezing, Snoring, Stridor, Pain on Inspiration, Chest Congestion, Excessive Mucous Production, Change in Mucous Color, Pain with Coughing, Other - Gastrointestinal Gastrointestinal: As Per HPI - Genitourinary Genitourinary: As Per HPI - Reproductive: Female Reproductive:Female: absent: As Per HPI, Amenorrhea, Amenorrhea/ Control, Currently Menstual, Cycle <21 Days, Cycle >35 Days, Cycle Variable, Menses 1-7 Days, Menses >/= 8 Days, Menses Variable, Cycle > 4 Weeks Between, No Menses for 6 Months, Heavy Menses, Light Menses, Normal Menses, Spotting Between Cycles , S/P Hysterectomy, Menopausal, Post Menopausal, Premenarche, Abnormal Vaginal Bleeding, Dysmenorrhea, Dyspareunia, Genital Lesions, Genital Pruritis, Pelvic Pain, Prolapse Symptoms, Sexual Dysfunction, Vaginal Discharge, Vaginal Dryness , Vaginal Odor, Vaginal Pruritis, Other - Menstruation Menstruation: absent: As Per HPI, Amenorrhea, Amenorrhea/ Control, Currently Menstual, Cycle <21 Days, Cycle >35 Days, Cycle Variable, Menses 1-7 Days, Menses >/= 8 Days, Menses Variable, Cycle > 4 Weeks Between, No Menses for 6 Months, Heavy Menses, Light Menses, Normal Menses, Spotting Between Cycles , S/P Hysterectomy, Menopausal, Post Menopausal, Premenarche, Abnormal Vaginal Bleeding, Dysmenorrhea, Other - Musculoskeletal Musculoskeletal: absent: As Per HPI, Abnormal Gait, Arthralgias, Atrophy, Back Pain, Deformity, Joint Swelling, Limited Range of Motion, Loss of Height, Muscle Cramps, Muscle Weakness, Myalgias, Neck Pain, Numbness, Radiating Pain into Limb, Stiffness, Tingling, Other - Integumentary Integumentary: absent: As Per HPI, Acne, Alopecia, Bleeding Lesions, Change in Hair, Change in Nails, Change in Pigmentation, Changing Lesions, Dry Skin, Erythema, Furuncle, Hirsutism, Lesions, New Lesions, Non-Healing Lesions, Photosensitivity, Pruritus, Rash, Skin Pain, Skin Ulcer, Sores, Striae, Swelling , Unusual Bruising, Wounds, Jaundice, Other - Neurological Neurological: absent: As Per HPI, Abnormal Gait, Abnormal Hearing, Abnormal Movements, Abnormal Speech, Behavioral Changes, Burning Sensations, Confusion, Convulsions, Disequilibrium, Dizziness, Numbness, Focal Weakness, Frequent Falls , Headaches, Lack of Coordination, Loss of Vision, Memory Loss, Paresthesias, Radicular Pain, Restless Legs, Sensory Deficit, Syncope, Tingling, Tremor, Vertigo, Weakness, Other Visual Disturbances, Other - Psychiatric Psychiatric: absent: As Per HPI, Abnormal Sleep Pattern, Anhedonia, Anxiety, Auditory Hallucinations, Behavioral Changes, Change in Appetite, Change in Libido, Confusion, Depression, Difficulty Concentrating, Hallucinations, Homicidal Ideation, Hopelessness, Irritability, Memory Loss, Mood Swings, Panic Attacks, Paranoia, Suicidal Ideation, Visual Hallucinations, Tactile Hallucinations, Other - Endocrine Endocrine: absent: As Per HPI, Change in Body Appearance, Change in Libido, Cold Intolorance, Deepening of Voice, Excessive Sweating, Fatigue, Flushing, Heat Intolorance, Increase in Ring/Shoe/Hat Size, Palpitations, Polydipsia, Polyphagia, Polyuria, Other - Hematologic/Lymphatic Hematologic: absent: As Per HPI, Easy Bleeding, Easy Bruising, Lymphadenopathy, Other Past Patient History - Past Medical History & Family History Past Medical History?: Yes - Past Social History Smoking Status: Never Smoked - CARDIAC Hx Hypercholesterolemia: Yes - PULMONARY Hx Respiratory Disorders: No Other/Comment: influenza - NEUROLOGICAL Hx Neurological Disorder: No - HEENT Hx HEENT Problems: No - RENAL Hx Chronic Kidney Disease: No - ENDOCRINE/METABOLIC Hx Endocrine Disorders: Yes Hx Diabetes Mellitus Type 2: Yes Other/Comment: peripheral neuropathy, ketosis - HEMATOLOGICAL/ONCOLOGICAL Hx Blood Disorders: No Hx Hepatitis C: Yes - INTEGUMENTARY Hx Dermatological Problems: No - MUSCULOSKELETAL/RHEUMATOLOGICAL Hx Musculoskeletal Disorders: No Hx Falls: No - GASTROINTESTINAL Hx Gastrointestinal Disorders: No - GENITOURINARY/GYNECOLOGICAL Hx Genitourinary Disorders: No - PSYCHIATRIC Hx Psychophysiologic Disorder: No Hx Substance Use: No - SURGICAL HISTORY Hx Surgeries: Yes Other/Comment: toe surgery - ANESTHESIA Hx Anesthesia: No Hx Anesthesia Reactions: No Hx Malignant Hyperthermia: No Meds Allergies/Adverse Reactions: Allergies Allergy/AdvReac Type Severity Reaction Status Date / Time vancomycin Allergy ITCHING Verified 08/20/17 13:59 - Medications Medications: Current Medications Amlodipine Besylate (Norvasc) 2.5 mg PO DAILY [facility] Last Admin: 08/21/17 09:56 Dose: 2.5 mg Enoxaparin Sodium (Lovenox) 40 mg SC DAILY [facility] PRN Reason: Protocol Stop: 08/23/17 23:59 Last Admin: 08/21/17 09:56 Dose: 40 mg Glipizide (Glucotrol Xl) 5 mg PO DAILY [facility] Last Admin: 08/21/17 09:56 Dose: 5 mg Piperacillin Sod/Tazobactam (Sod 3.375 gm/ Sodium Chloride) 100 mls @ 100 mls/ hr IVPB Q12 [facility] Stop: 08/23/17 23:59 Last Admin: 08/21/17 09:57 Dose: 100 mls/hr Insulin Human Regular (Humulin R) 0 units SC ACCU-CHECK [facility] PRN Reason: Protocol Last Admin: 08/21/17 07:00 Dose: Not Given Lactobacillus Acidophilus (Bacid Acidophilus) 1 cap PO BID [facility] Last Admin: 08/21/17 09:56 Dose: 1 cap Metformin HCl (Glucophage) 500 mg PO DAILY [facility] Last Admin: 08/20/17 09:19 Dose: Not Given Sitagliptin Phosphate (Januvia) 100 mg PO DAILY [facility] Last Admin: 08/21/17 09:56 Dose: 100 mg Physical Exam - Constitutional Appears: Non-toxic, No Acute Distress - Head Exam Head Exam: ATRAUMATIC, NORMAL INSPECTION, NORMOCEPHALIC - Eye Exam Eye Exam: PERRL. absent: Scleral icterus Pupil Exam: NORMAL ACCOMODATION - ENT Exam ENT Exam: Mucous Membranes Dry, Normal External Ear Exam, Normal Oropharynx - Neck Exam Neck exam: Negative for: Lymphadenopathy, Thyromegaly - Respiratory Exam Respiratory Exam: Decreased Breath Sounds, Clear to Auscultation Bilateral - Cardiovascular Exam Cardiovascular Exam: REGULAR RHYTHM, +S1, +S2. absent: Systolic Murmur - GI/Abdominal Exam GI & Abdominal Exam: Diminished Bowel Sounds, Soft. absent: Tenderness - Rectal Exam Rectal Exam: Deferred - Exam Exam: NORMAL INSPECTION - Extremities Exam Extremities exam: Positive for: pedal pulses present. Negative for: calf tenderness, pedal edema, tenderness - Back Exam Back exam: absent: CVA tenderness (L), CVA tenderness (R) - Neurological Exam Neurological exam: Alert, CN II-XII Intact, Oriented x3, Reflexes Normal - Psychiatric Exam Psychiatric exam: Normal Mood - Skin Skin Exam: Dry, Intact Results - Vital Signs Recent Vital Signs: Last Vital Signs Temp 98.4 F 08/21/17 08:02 Pulse 65 08/21/17 09:56 Resp 20 08/21/17 08:02 BP 128/69 08/21/17 09:56 Pulse Ox 97 08/21/17 08:02 - Labs Result Diagrams: 08/19/17 19:30 08/19/17 19:30 Labs: Laboratory Results - last 24 hr 08/20/17 08/20/17 08/20/17 07:55 15:26 21:28 POC Glucose (mg/dL) 210 H 75 Hemoglobin A1c 6.9 H 08/20/17 08/21/17 08/21/17 22:13 05:22 10:47 POC Glucose (mg/dL) 134 H 122 H 362 H Hemoglobin A1c Assessment & Plan (1) Abdominal pain in female Status: Acute (2) Bacteremia Status: Acute (3) Sepsis Status: Acute - Assessment and Plan (Free Text) Assessment: 77 yo diabetic with hx of hep c treated) is admitted with vague abd pain and bacteremia from cultures done at [facility] Name cont IV antibiotics consider [place] and CT abd/ pelvis cont IV antibiotics for min 14 days will eventually need upper / lower endoscopy
--- NOTE | 2017-08-21 14:54 | PQF GENQUE ---
Dr. Coelho, Etiology of Sepsis?: Please document suspected or confirmed localized infection and /or Please clarify if sepsis is related to a device etc.: if known after the work up is completed: OR: Unable to determine ID note:History of Present Illness: past medical history significant for diabetes mellitus and Hepatitis C ( Rx 2014 [facility]) who was recently seen in [facility] emergency room for evaluation of abdominal discomfort. She had undergone blood cultures which were reported to be positive for gram- positive cocci . On day 1 she developed some abdominal discomfort and had an episode of emesis. She was subsequently discharged home. Prior to that she was treated for uterine urinary tract infection by Dr. Coelho with IV with p.o. antibiotic course for a week. blood c/s + strep salivarius Constitutional: As Per HPI, Anorexia, Chills Impression: 1) Abdominal pain in female Status: Acute (2) Bacteremia Status: Acute (3) Sepsis Status: Acute This form is a permanent part of the medical record Clarification of your documentation is requested to better reflect the severity of illness and intensity of treatment of your patient. Indicators present [] Specify: [X]Acute Sepsis [] Specify: [] [] Specify: [] [] Specify: [] Location in the medical record that reflects the above clinical findings: [] Treatment Provided: [X]IV anti biotics PHYSICIAN'S RESPONSE Based on your medical judgment of the clinical indicators outlined above please clarify the following: [] Practitioner response [] If unable to determine, please check the box, sign and date. Present On Admission (POA) Indicator: [X] Present at the time of admission [] Not present at the time of admission [] Clinically Undetermined In responding to this query, please exercise your independent professional judgment. The fact that a question is asked does not imply that any particular answer is desired or expected. Thank you for your clarification on this documentation. If you have any questions please call. * Thank you, Azucena Cardoso RN BSN ext. #[phone]: Sue FERRO
[2017-08-21] MEDS: Ampicillin/Sulbactam 3 GM in Sodium Chloride 0.9% 100 ML IVPB SCH ×2 (17:27→21:06)
[2017-08-22] MEDS: Ampicillin/Sulbactam 3 GM in Sodium Chloride 0.9% 100 ML IVPB SCH ×2 (03:35→10:25)
[2017-08-22 09:11] VITALS: BP 146/70; PULSE 80; RESP 20; TEMP 97.6; O2SAT 98
[2017-08-22] MEDS: Lactobacillus Acidophilus 500 MU Cap PO SCH (10:21)
[2017-08-22] MEDS: GlipiZIDE 5 mg SR Tab PO SCH (10:22)
[2017-08-22] MEDS: Insulin Regular 100 units/ml SC SCH ×2 (10:23→13:41)
[2017-08-22] MEDS: Enoxaparin 40 mg Syringe SC SCH (10:24)
--- NOTE | 2017-08-22 14:16 | CP.PCM.DIS ---
Provider - Provider Date of Admission: 08/19/17 22:51 Attending physician: Darren Coelho MD Time Spent in preparation of Discharge (in minutes): 30 Diagnosis - Discharge Diagnosis (1) Bacteremia Status: Acute (2) Abdominal pain Status: Acute (3) Diabetes Status: Chronic (4) Hyperglycemia Status: Chronic (5) Sepsis Status: Acute (6) Hypertensive cardiovascular disease Status: Chronic Hospital Course - Lab Results Lab Results: Micro Results 08/19/17 19:15 Blood-Venous Blood Culture - Preliminary NO GROWTH AFTER 48 HOURS 08/19/17 19:30 Blood-Venous Blood Culture - Preliminary NO GROWTH AFTER 48 HOURS 08/19/17 20:00 Urine,Clean Catch Urine Culture - Final No Growth (<1,000 CFU/ML) Most Recent Lab Values WBC 7.3 K/uL (4.8-10.8) 08/19/17 19:30 RBC 4.11 Mil/uL (3.80-5.20) 08/19/17 19:30 Hgb 12.8 g/dL (12.0-16.0) 08/19/17 19:30 Hct 38.0 % (34.0-47.0) 08/19/17 19:30 MCV 92.4 fl (81.0-99.0) 08/19/17 19:30 MCH 31.1 pg (27.0-31.0) H 08/19/17 19:30 MCHC 33.7 g/dL (33.0-37.0) 08/19/17 19:30 RDW 13.8 % (11.5-14.5) 08/19/17 19:30 Plt Count 230 K/uL (130-400) 08/19/17 19:30 MPV 8.5 fl (7.2-11.7) 08/19/17 19:30 Neut % (Auto) 52.5 % (50.0-75.0) 08/19/17 19:30 Lymph % (Auto) 35.5 % (20.0-40.0) 08/19/17 19:30 Cotton % (Auto) 9.7 % (0.0-10.0) 08/19/17 19:30 Eos % (Auto) 1.7 % (0.0-4.0) 08/19/17 19:30 Baso % (Auto) 0.6 % (0.0-2.0) 08/19/17 19:30 Neut # 3.9 K/uL (1.8-7.0) 08/19/17 19:30 Lymph # 2.6 K/uL (1.0-4.3) 08/19/17 19:30 Cotton # 0.7 K/uL (0.0-0.8) 08/19/17 19:30 Eos # 0.1 K/uL (0.0-0.7) 08/19/17 19:30 Baso # 0.0 K/uL (0.0-0.2) 08/19/17 19:30 ESR 18 mm/hr (0-30) 08/22/17 09:30 pO2 19 mm/Hg (30-55) L 08/19/17 20:00 VBG pH 7.30 (7.32-7.43) L 08/19/17 20:00 VBG pCO2 56 mmHg (40-60) 08/19/17 20:00 VBG HCO3 23.0 mmol/L 08/19/17 20:00 VBG Total CO2 29.3 mmol/L (22-28) H 08/19/17 20:00 VBG O2 Sat (Calc) 31.3 % (40-65) L 08/19/17 20:00 VBG Base Excess 0.1 mmol/L (0.0-2.0) 08/19/17 20:00 VBG Potassium 4.1 mmol/L (3.6-5.2) 08/19/17 20:00 Sodium 142.0 mmol/L (132-148) 08/19/17 20:00 Chloride 107.0 mmol/L (98-107) 08/19/17 20:00 Glucose 147 mg/dL (65-105) H 08/19/17 20:00 Lactate 1.9 mmol/L (0.7-2.1) 08/19/17 20:00 FiO2 21.0 % 08/19/17 20:00 Sodium 143 mmol/l (132-148) 08/19/17 19:30 Potassium 4.9 MMOL/L (3.6-5.0) 08/19/17 19:30 Chloride 108 mmol/L (98-107) H 08/19/17 19:30 Carbon Dioxide 25 mmol/L (22-30) 08/19/17 19:30 Anion Gap 15 (10-20) 08/19/17 19:30 BUN 13 mg/dl (7-17) 08/19/17 19:30 Creatinine 0.7 mg/dL (0.7-1.2) 08/19/17 19:30 Est GFR ( Amer) > 60 08/19/17 19:30 Est GFR (Non-Af Amer) > 60 08/19/17 19:30 POC Glucose (mg/dL) 366 mg/dL (65-110) H 08/22/17 11:00 Random Glucose 143 mg/dL (65-105) H 08/19/17 19:30 Hemoglobin A1c 6.9 % (4.2-6.5) H 08/20/17 07:55 Calcium 9.5 mg/dL (8.4-10.2) 08/19/17 19:30 Total Bilirubin 0.4 mg/dl (0.2-1.3) 08/19/17 19:30 AST 28 U/L (14-36) 08/19/17 19:30 ALT 31 U/L (9-52) 08/19/17 19:30 Alkaline Phosphatase 63 U/L (38-126) 08/19/17 19:30 Troponin I < 0.0120 ng/mL (0.00-0.120) 08/19/17 19:30 Total Protein 6.8 G/DL (6.3-8.2) 08/19/17 19:30 Albumin 4.2 g/dL (3.5-5.0) 08/19/17 19:30 Globulin 2.6 gm/dL (2.2-3.9) 08/19/17 19:30 Albumin/Globulin Ratio 1.6 (1.0-2.1) 08/19/17 19:30 Lipase 93 U/L (23-300) 08/19/17 19:30 TSH 3rd Generation 3.75 mIU/ML (0.46-4.68) 08/20/17 07:55 Venous Blood Potassium 4.1 mmol/L (3.6-5.2) 08/19/17 20:00 Urine Color Straw (YELLOW) 08/19/17 20:26 Urine Clarity Clear (Clear) 08/19/17 20: Urine pH 6.0 (5.0-8.0) 08/19/17 20: Ur Specific [place] 1.011 (1.003-1.030) 08/19/17 20: Urine Protein Negative mg/dL (NEGATIVE) 08/19/17 20: Urine Glucose (UA) Neg mg/dL (Normal) 08/19/17 20: Urine Ketones Negative mg/dL (NEGATIVE) 08/19/17 20: Urine Blood Negative (NEGATIVE) 08/19/17 20: Urine Nitrate Negative (NEGATIVE) 08/19/17 20: Urine Bilirubin Negative (NEGATIVE) 08/19/17: Urine Urobilinogen 0.2-1.0 mg/dL (0.2-1.0) 08/19/17 20: Ur Leukocyte Esterase Neg Mario/uL (Negative) 08/19/17 20: Urine RBC (Auto) 2 /hpf (0-3) 08/19/17: Urine Microscopic WBC < 1 /hpf (0-5) 08/19/17 20: - Hospital Course Hospital Course: Patient presented in ER with generalized malaise with abdominal pain and weakness. In ER she had a blood culture that was positive for gram positive cocci in chain. The patient was admired for further evaluation and IV antibx. Previously she was treated with oral broad spectrum antibx with no resolution of the general symptoms. Will follow culture and sensitivity. She had an allergic reaction to vancomicin. Patient with severe co morbidity DM, CAD, HTN. Clinically she well responded to rx. Will transfer to TCU for further Dx and Rx. Discharge Exam - Head Exam Head Exam: ATRAUMATIC, NORMAL INSPECTION, NORMOCEPHALIC - Eye Exam Eye Exam: Normal appearance, PERRL - Neck Exam Neck exam: Full Rom - Respiratory Exam Respiratory Exam: Clear to PA & Lateral - Cardiovascular Exam Cardiovascular Exam: REGULAR RHYTHM, +S1, +S2 - GI/Abdominal Exam GI & Abdominal Exam: Normal Bowel Sounds - Neurological Exam Neurological exam: Alert, CN II-XII Intact, Normal Gait, Oriented x3, Reflexes Normal - Psychiatric Exam Psychiatric exam: Normal Affect - Skin Skin Exam: Normal Color Discharge Plan - Discharge Medications Prescriptions: Ampicillin Sodium/Sulbactam Na [Ampicillin-Sulbactam 3 gm Vial] 3 gm IJ Q6 14 Days vial - Follow Up Plan Condition: FAIR Disposition: REHAB FACILITY/REHAB UNIT Instructions: Acute Abdominal Pain (DC) Additional Instructions: Pt for OLIMPIA on Thursday-07/24 at [facility] , [address] Leon Referrals: Darren Coelho MD [Family Provider] -
== END 2017-08-22 14:29 | DRG 872 ==
LOC: H.ER 17:23 → H.ERHOLD 22:51 → H.MEDSURG1 08-20 00:32
PROVIDERS: ADMIT Internal Medicine; ATTEND Internal Medicine
DX: A40.8 Other streptococcal sepsis (principal); E11.65 Type 2 diabetes mellitus with hyperglycemia; I11.9 Hypertensive heart disease without heart failure; Z88.1 Allergy status to other antibiotic agents; E78.00 Pure hypercholesterolemia, unspecified; R07.9 Chest pain, unspecified; I25.10 Atherosclerotic heart disease of native coronary artery without angina pectoris; R10.9 Unspecified abdominal pain

== ENCOUNTER 2017-08-22 11:48 | Inpatient (IN) | payer OTHER, MEDICARE ==
[2017-08-22 14:20] VITALS: BMI 27.1
[2017-08-22] MEDS ORDERED: Insulin Regular 100 units/ml SC SCH (15:00)
[2017-08-22] MEDS ORDERED: Ampicillin/Sulbactam 3 gm Inj IVPB SCH (16:00)
[2017-08-22] MEDS: Ampicillin/Sulbactam 3 GM in Sodium Chloride 0.9% 100 ML IVPB SCH ×2 (16:48→21:28)
[2017-08-22] MEDS: Lactobacillus Acidophilus 500 MU Cap PO SCH (16:51)
[2017-08-22 17:06] VITALS: RESP 20
[2017-08-22 17:33] LABS: HEMATOCRIT 39.1 % (34.0-47.0); MEAN CELL VOLUME 93.1 fl (81.0-99.0); MEAN CORPUSCULAR HEMOGLOBIN 31.3 pg (27.0-31.0); MEAN CORPUSCULAR HGB CONC 33.6 g/dL (33.0-37.0); RED CELL DISTRIBUTION WIDTH 13.8 % (11.5-14.5); WHITE BLOOD COUNT 8.5 K/uL (4.8-10.8)
[2017-08-22 17:47] LABS: PARTIAL THROMBOPLASTIN TIME 39.9 Seconds (25.6-37.1)
[2017-08-22 17:48] LABS: BLOOD UREA NITROGEN 18 mg/dl (7-17); CALCIUM 9.2 mg/dL (8.4-10.2); CARBON DIOXIDE 24 mmol/L (22-30); CHLORIDE 107 mmol/L (98-107); GFR AFRICAN-AMERICAN > 60; GLUCOSE,RANDOM 66 mg/dL (65-105); POTASSIUM 4.3 MMOL/L (3.6-5.0); SODIUM 146 mmol/l (132-148)
[2017-08-22] MEDS: Insulin Regular 100 units/ml SC SCH (18:12)
[2017-08-23] MEDS: Ampicillin/Sulbactam 3 GM in Sodium Chloride 0.9% 100 ML IVPB SCH ×4 (04:14→21:08)
[2017-08-23] MEDS: Insulin Regular 100 units/ml SC SCH ×4 (06:52→21:13)
[2017-08-23] MEDS: Enoxaparin 40 mg Syringe SC SCH (08:44)
[2017-08-23] MEDS: GlipiZIDE 5 mg SR Tab PO SCH (08:44)
[2017-08-23] MEDS: Lactobacillus Acidophilus 500 MU Cap PO SCH ×2 (11:44→16:05)
--- NOTE | 2017-08-23 13:05 | CP.PCM.CON ---
History of Present Illness - History of Present Illness History of Present Illness: 77 yo female with hx of DMII, HTN , and hep C treated in 2014 Is admitted to TCU for IV antibiotics went to [facility] for episode of weakness and found to have positive Blood C/s was given antibiotics for presumed UTI recent blood cultures after antibiotic rx were negative Going for OLIMPIA May need rx for 14 days ( Bacteremia) vs longer course for endocarditis Review of Systems - Review of Systems All systems: reviewed and no additional remarkable complaints except - Constitutional Constitutional: absent: As Per HPI, Anorexia, Chills, Daytime Sleepiness, Excessive Sweating, Fatigue, Fever, Frequent Falls, Headache, Increased Appetite , Lethargy, Malaise, Night Sweats, Snoring, Sleep Apnea, Weight Gain, Weight Loss, Weakness, Other - EENT Eyes: absent: As Per HPI, Blind Spots, Blurred Vision, Change in Vision, Decreased Night Vision, Diplopia, Discharge, Dry Eye, Exophthalmos, Floaters, Irritation, Itchy Eyes, Loss of Peripheral Vision, Pain, Photophobia, Requires Corrective Lenses, Sees Flashes, Spots in Vision, Tunnel Vision, Other Visual Disturbances, Loss of Vision, Other Ears: absent: As Per HPI, Decreased Hearing, Ear Discharge, Ear Pain, Tinnitus, Abnormal Hearing, Disequilibrium, Dizziness, Other Nose/Mouth/Throat: absent: As Per HPI, Epistaxis, Nasal Congestion, Nasal Discharge, Nasal Obstruction, Nasal Trauma, Nose Pain, Post Nasal Drip, Sinus Pain, Sinus Pressure, Bleeding Gums, Change in Voice, Dental Pain, Dry Mouth, Dysphagia, Halitosis, Hoarsness, Lip Swelling, Mouth Lesions, Mouth Pain, Odynophagia, Sore Throat, Throat Swelling, Tongue Swelling, Facial Pain, Neck Pain, Neck Mass, Other - Breasts Breasts: absent: As Per HPI, Change in Shape, Mass, Pain, Nipple Discharge, Nipple Inversion, Skin Changes, Swelling, Other - Cardiovascular Cardiovascular: absent: As Per HPI, Acrocyanosis, Chest Pain, Chest Pain at Rest , Chest Pain with Activity, Claudication, Diaphoresis, Dyspnea, Dyspnea on Exertion, Edema, Irregular Heart Rhythm, Pain Radiating to Arm/Neck/Jaw, Leg Edema, Leg Ulcers, Lightheadedness, Orthopnea, Palpitations, Paroxysmal Nocturnal Dyspnea, Pedal Edema, Radiating Pain, Rapid Heart Rate, Slow Heart Rate, Syncope, Other - Respiratory Respiratory: absent: As Per HPI, Cough, Dyspnea, Hemoptysis, Dyspnea on Exertion , Wheezing, Snoring, Stridor, Pain on Inspiration, Chest Congestion, Excessive Mucous Production, Change in Mucous Color, Pain with Coughing, Other - Gastrointestinal Gastrointestinal: absent: As Per HPI, Abdominal Pain, Belching, Bloating, Change in Bowel Habits, Change in Stool Character, Coffee Ground Emesis, Constipation, Cramping, Diarrhea, Dyspepsia, Dysphagia, Early Satiety, Excessive Flatus, Fecal Incontinence, Heartburn, Hematemesis, Hematochezia, Loose Stools, Melena, Nausea, Odynophagia, Temesmus, Vomiting, Other - Genitourinary Genitourinary: absent: As Per HPI, Change in Urinary Stream, Difficulty Urinating, Dysuria, Flank Pain, Hematuria, Pyuria, Nocturia, Urinary Incontinence, Urinary Frequency, Urinary Hesitance, Urinary Urgency, Voiding Freq/Small Amts, Freq UTI, Hx Renal/Bladder Calculi, Hx /Renal Surgery, Bladder Distension, Other - Reproductive: Female Reproductive:Female: absent: As Per HPI, Amenorrhea, Amenorrhea/ Control, Currently Menstual, Cycle <21 Days, Cycle >35 Days, Cycle Variable, Menses 1-7 Days, Menses >/= 8 Days, Menses Variable, Cycle > 4 Weeks Between, No Menses for 6 Months, Heavy Menses, Light Menses, Normal Menses, Spotting Between Cycles , S/P Hysterectomy, Menopausal, Post Menopausal, Premenarche, Abnormal Vaginal Bleeding, Dysmenorrhea, Dyspareunia, Genital Lesions, Genital Pruritis, Pelvic Pain, Prolapse Symptoms, Sexual Dysfunction, Vaginal Discharge, Vaginal Dryness , Vaginal Odor, Vaginal Pruritis, Other - Menstruation Menstruation: absent: As Per HPI, Amenorrhea, Amenorrhea/ Control, Currently Menstual, Cycle <21 Days, Cycle >35 Days, Cycle Variable, Menses 1-7 Days, Menses >/= 8 Days, Menses Variable, Cycle > 4 Weeks Between, No Menses for 6 Months, Heavy Menses, Light Menses, Normal Menses, Spotting Between Cycles , S/P Hysterectomy, Menopausal, Post Menopausal, Premenarche, Abnormal Vaginal Bleeding, Dysmenorrhea, Other - Musculoskeletal Musculoskeletal: absent: As Per HPI, Abnormal Gait, Arthralgias, Atrophy, Back Pain, Deformity, Joint Swelling, Limited Range of Motion, Loss of Height, Muscle Cramps, Muscle Weakness, Myalgias, Neck Pain, Numbness, Radiating Pain into Limb, Stiffness, Tingling, Other - Integumentary Integumentary: absent: As Per HPI, Acne, Alopecia, Bleeding Lesions, Change in Hair, Change in Nails, Change in Pigmentation, Changing Lesions, Dry Skin, Erythema, Furuncle, Hirsutism, Lesions, New Lesions, Non-Healing Lesions, Photosensitivity, Pruritus, Rash, Skin Pain, Skin Ulcer, Sores, Striae, Swelling , Unusual Bruising, Wounds, Jaundice, Other - Neurological Neurological: absent: As Per HPI, Abnormal Gait, Abnormal Hearing, Abnormal Movements, Abnormal Speech, Behavioral Changes, Burning Sensations, Confusion, Convulsions, Disequilibrium, Dizziness, Numbness, Focal Weakness, Frequent Falls , Headaches, Lack of Coordination, Loss of Vision, Memory Loss, Paresthesias, Radicular Pain, Restless Legs, Sensory Deficit, Syncope, Tingling, Tremor, Vertigo, Weakness, Other Visual Disturbances, Other - Psychiatric Psychiatric: absent: As Per HPI, Abnormal Sleep Pattern, Anhedonia, Anxiety, Auditory Hallucinations, Behavioral Changes, Change in Appetite, Change in Libido, Confusion, Depression, Difficulty Concentrating, Hallucinations, Homicidal Ideation, Hopelessness, Irritability, Memory Loss, Mood Swings, Panic Attacks, Paranoia, Suicidal Ideation, Visual Hallucinations, Tactile Hallucinations, Other - Endocrine Endocrine: absent: As Per HPI, Change in Body Appearance, Change in Libido, Cold Intolorance, Deepening of Voice, Excessive Sweating, Fatigue, Flushing, Heat Intolorance, Increase in Ring/Shoe/Hat Size, Palpitations, Polydipsia, Polyphagia, Polyuria, Other - Hematologic/Lymphatic Hematologic: absent: As Per HPI, Easy Bleeding, Easy Bruising, Lymphadenopathy, Other Past Patient History - Past Medical History & Family History Past Medical History?: Yes - Past Social History Smoking Status: Never Smoked - CARDIAC Hx Hypercholesterolemia: Yes - PULMONARY Hx Respiratory Disorders: No Other/Comment: influenza - NEUROLOGICAL Hx Neurological Disorder: No - HEENT Hx HEENT Problems: No - RENAL Hx Chronic Kidney Disease: No - ENDOCRINE/METABOLIC Hx Endocrine Disorders: Yes Hx Diabetes Mellitus Type 2: Yes Other/Comment: peripheral neuropathy, ketosis - HEMATOLOGICAL/ONCOLOGICAL Hx Blood Disorders: No Hx Hepatitis C: Yes - INTEGUMENTARY Hx Dermatological Problems: No - MUSCULOSKELETAL/RHEUMATOLOGICAL Hx Falls: No - GASTROINTESTINAL Hx Gastrointestinal Disorders: No - GENITOURINARY/GYNECOLOGICAL Hx Genitourinary Disorders: No - PSYCHIATRIC Hx Psychophysiologic Disorder: No Hx Substance Use: No - SURGICAL HISTORY Hx Surgeries: Yes Other/Comment: toe surgery - ANESTHESIA Hx Anesthesia: No Hx Anesthesia Reactions: No Hx Malignant Hyperthermia: No Meds Allergies/Adverse Reactions: Allergies Allergy/AdvReac Type Severity Reaction Status Date / Time vancomycin Allergy ITCHING Verified 08/22/17 14:19 - Medications Medications: Current Medications Amlodipine Besylate (Norvasc) 2.5 mg PO DAILY [facility] Last Admin: 08/23/17 08:44 Dose: 2.5 mg Enoxaparin Sodium (Lovenox) 40 mg SC DAILY [facility] PRN Reason: Protocol Last Admin: 08/23/17 08:44 Dose: 40 mg Glipizide (Glucotrol Xl) 5 mg PO BRK [facility] Last Admin: 08/23/17 08:44 Dose: 5 mg Ampicillin Sodium/Sulbactam (Sodium 3 gm/ Sodium Chloride) 100 mls @ 100 mls/ hr IVPB Q6 [facility] Last Admin: 08/23/17 10:22 Dose: 100 mls/hr Insulin Human Regular (Humulin R) 0 units SC ACHS [facility] PRN Reason: Protocol Last Admin: 08/23/17 11:20 Dose: 8 unit Lactobacillus Acidophilus (Bacid Acidophilus) 1 cap PO BID [facility] Last Admin: 08/23/17 11:44 Dose: 1 cap Metformin HCl (Glucophage) 500 mg PO DAILY [facility] Last Admin: 08/23/17 08:44 Dose: 500 mg Nystatin/Triamcinolone Acetonide (Mycolog Ii) 1 applic TOP BID [facility] Sitagliptin Phosphate (Januvia) 100 mg PO DAILY [facility] Last Admin: 08/23/17 08:44 Dose: 100 mg Physical Exam - Constitutional Appears: Non-toxic, Chronically Ill - Head Exam Head Exam: NORMOCEPHALIC - Eye Exam Eye Exam: PERRL. absent: Scleral icterus - ENT Exam ENT Exam: Mucous Membranes Dry, Normal External Ear Exam - Neck Exam Neck exam: Negative for: Lymphadenopathy, Thyromegaly - Respiratory Exam Respiratory Exam: Decreased Breath Sounds, Clear to Auscultation Bilateral - Cardiovascular Exam Cardiovascular Exam: REGULAR RHYTHM - GI/Abdominal Exam GI & Abdominal Exam: Diminished Bowel Sounds, Soft. absent: Tenderness - Rectal Exam Rectal Exam: Deferred - Exam Exam: NORMAL INSPECTION - Extremities Exam Extremities exam: Negative for: pedal edema - Back Exam Back exam: absent: CVA tenderness (L), CVA tenderness (R) - Neurological Exam Neurological exam: Alert, CN II-XII Intact, Oriented x3, Reflexes Normal - Psychiatric Exam Psychiatric exam: Normal Mood - Skin Skin Exam: Dry Results - Vital Signs Recent Vital Signs: Last Vital Signs Temp 96.4 F L 08/23/17 08:17 Pulse 70 08/23/17 08:44 Resp 20 08/23/17 08:17 BP 145/71 08/23/17 08:44 Pulse Ox 98 08/23/17 08:17 - Labs Result Diagrams: 08/22/17 17:26 08/27/17 13:30 Labs: Laboratory Results - last 24 hr 08/22/17 08/22/17 08/22/17 16:56 17:26 17:26 WBC 8.5 RBC 4.20 Hgb 13.1 Hct 39.1 MCV 93.1 MCH 31.3 H MCHC 33.6 RDW 13.8 Plt Count 231 PT 11.1 INR 1.1 APTT 39.9 H Sodium Potassium Chloride Carbon Dioxide Anion Gap BUN Creatinine Est GFR ( Amer) Est GFR (Non-Af Amer) POC Glucose (mg/dL) 64 L Random Glucose Calcium 08/22/17 08/22/17 08/22/17 17:26 17:41 20:47 WBC RBC Hgb Hct MCV MCH MCHC RDW Plt Count PT INR APTT Sodium 146 Potassium 4.3 Chloride 107 Carbon Dioxide 24 Anion Gap 20 BUN 18 H Creatinine 0.7 Est GFR ( Amer) > 60 Est GFR (Non-Af Amer) > 60 POC Glucose (mg/dL) 208 H 259 H Random Glucose 66 Calcium 9.2 08/23/17 08/23/17 06:21 11:02 WBC RBC Hgb Hct MCV MCH MCHC RDW Plt Count PT INR APTT Sodium Potassium Chloride Carbon Dioxide Anion Gap BUN Creatinine Est GFR ( Amer) Est GFR (Non-Af Amer) POC Glucose (mg/dL) 244 H 376 H Random Glucose Calcium Assessment & Plan (1) Bacteremia Status: Acute
[2017-08-23] MEDS: Mycolog II CREAM TOP SCH (16:06)
[2017-08-24] MEDS: Ampicillin/Sulbactam 3 GM in Sodium Chloride 0.9% 100 ML IVPB SCH ×4 (03:26→21:16)
[2017-08-24] MEDS: Insulin Regular 100 units/ml SC SCH ×4 (06:54→21:20)
[2017-08-24] MEDS: Lactobacillus Acidophilus 500 MU Cap PO SCH ×2 (09:05→17:25)
[2017-08-24] MEDS: GlipiZIDE 5 mg SR Tab PO SCH (09:05)
[2017-08-24] MEDS: Enoxaparin 40 mg Syringe SC SCH (09:07)
[2017-08-24] MEDS: Mycolog II CREAM TOP SCH ×2 (09:08→17:28)
[2017-08-24] MEDS ORDERED: Midazolam 2 MG/2 ML VIAL ONE (12:50)
[2017-08-24] MEDS ORDERED: Propofol 10 mg/ml Inj (20 ML) ONE (12:50)
--- NOTE | 2017-08-24 13:22 | CP.PCM.PN ---
Subjective - Date & Time of Evaluation Date of Evaluation: 08/24/17 Time of Evaluation: 13:22 - Subjective Subjective: Patient comfortable. For OLIMPIA Objective - Vital Signs/Intake and Output Vital Signs (last 24 hours): Temp Pulse Resp BP Pulse Ox 97.6 F 68 20 150/72 99 08/24/17 08:10 08/24/17 09:09 08/24/17 08:10 08/24/17 09:09 08/24/17 08:10 - Medications Medications: Current Medications Amlodipine Besylate (Norvasc) 2.5 mg PO DAILY [facility] Last Admin: 08/24/17 09:09 Dose: Not Given Amlodipine Besylate (Norvasc) 5 mg PO DAILY [facility] Enoxaparin Sodium (Lovenox) 40 mg SC DAILY [facility] PRN Reason: Protocol Last Admin: 08/24/17 09:07 Dose: Not Given Glipizide (Glucotrol Xl) 5 mg PO BRK [facility] Last Admin: 08/24/17 09:05 Dose: Not Given Ampicillin Sodium/Sulbactam (Sodium 3 gm/ Sodium Chloride) 100 mls @ 100 mls/ hr IVPB Q6 [facility] Last Admin: 08/24/17 09:12 Dose: 100 mls/hr Insulin Human Regular (Humulin R) 0 units SC ACHS [facility] PRN Reason: Protocol Last Admin: 08/24/17 06:54 Dose: Not Given Lactobacillus Acidophilus (Bacid Acidophilus) 1 cap PO BID [facility] Last Admin: 08/24/17 09:05 Dose: Not Given Metformin HCl (Glucophage) 1,000 mg PO BID [facility] Nystatin/Triamcinolone Acetonide (Mycolog Ii) 1 applic TOP BID [facility] Last Admin: 08/24/17 09:08 Dose: Not Given Sitagliptin Phosphate (Januvia) 100 mg PO DAILY [facility] Last Admin: 08/24/17 09:06 Dose: Not Given - Labs Labs: 08/22/17 17:26 08/22/17 17:26 PT 11.1 Seconds (9.8-13.1) 08/22/17 17:26 INR 1.1 (0.9-1.2) 08/22/17 17:26 APTT 39.9 Seconds (25.6-37.1) H 08/22/17 17:26 - Constitutional Appears: Well - Head Exam Head Exam: ATRAUMATIC, NORMAL INSPECTION, NORMOCEPHALIC - Eye Exam Eye Exam: Normal appearance - Neck Exam Neck Exam: Full ROM - Respiratory Exam Respiratory Exam: Clear to Ausculation Bilateral - Cardiovascular Exam Cardiovascular Exam: REGULAR RHYTHM, +S1, +S2 - GI/Abdominal Exam GI & Abdominal Exam: Soft, Normal Bowel Sounds - Neurological Exam Neurological Exam: Alert, Awake, CN II-XII Intact, Oriented x3 - Psychiatric Exam Psychiatric exam: Normal Affect - Skin Skin Exam: Normal Color Assessment and Plan (1) Bacteremia Status: Acute (2) Sepsis Status: Acute (3) Diabetes Status: Chronic (4) Hyperglycemia Status: Chronic (5) Hypertensive cardiovascular disease Status: Chronic - Assessment and Plan (Free Text) Assessment: Will follow OLIMPIA
[2017-08-24] MEDS ORDERED: Lactated Ringer's 1,000 ML IV SCH (13:45)
[2017-08-24] MEDS ORDERED: Lidocaine 2% MPF (5 ml) Inj ONE (13:46)
[2017-08-24] MEDS ORDERED: Etomidate 20 mg/10ml Inj IV ONE (13:46)
--- NOTE | 2017-08-24 23:53 | CP.PCM.CON ---
History of Present Illness - History of Present Illness History of Present Illness: Consultation requested for evaluation of endocarditis HPI: 77-year-old Nepali female with past medical history significant for hepatitis C for which she was treated in the past hypertension diabetes mellitus who was recently admitted to [facility] emergency room for evaluation of abdominal discomfort at which time she had blood cultures drawn. Patient was subsequently called back to the hospital as the lab reported her to have positive gram-positive cocci cultures. She was admitted to [facility] and then subsequently transferred to the transitional care unit outpatient facility. Plan was to have the patient undergo a transesophageal echocardiogram as per the recommendations of infectious disease to rule out subacute bacterial endocarditis as the cause of her bacteremia. She remained afebrile and denied having any complaints of systemic infection. Review of Systems - Review of Systems All systems: reviewed and no additional remarkable complaints except - Constitutional Constitutional: As Per HPI - EENT Eyes: As Per HPI Ears: As Per HPI Nose/Mouth/Throat: As Per HPI - Breasts Breasts: As Per HPI - Cardiovascular Cardiovascular: As Per HPI - Respiratory Respiratory: As Per HPI - Gastrointestinal Gastrointestinal: As Per HPI - Genitourinary Genitourinary: As Per HPI - Reproductive: Female Reproductive:Female: As Per HPI - Menstruation Menstruation: As Per HPI - Musculoskeletal Musculoskeletal: As Per HPI - Integumentary Integumentary: As Per HPI - Neurological Neurological: As Per HPI - Psychiatric Psychiatric: As Per HPI - Endocrine Endocrine: As Per HPI - Hematologic/Lymphatic Hematologic: As Per HPI Past Patient History - Past Medical History & Family History Past Medical History?: Yes Pertinent Family History: +ve for HTN - Past Social History Smoking Status: Never Smoked - CARDIAC Hx Hypercholesterolemia: Yes - PULMONARY Hx Respiratory Disorders: No Other/Comment: influenza - NEUROLOGICAL Hx Neurological Disorder: No - HEENT Hx HEENT Problems: No - RENAL Hx Chronic Kidney Disease: No - ENDOCRINE/METABOLIC Hx Endocrine Disorders: Yes Hx Diabetes Mellitus Type 2: Yes Other/Comment: peripheral neuropathy, ketosis - HEMATOLOGICAL/ONCOLOGICAL Hx Blood Disorders: No Hx Hepatitis C: Yes - INTEGUMENTARY Hx Dermatological Problems: No - MUSCULOSKELETAL/RHEUMATOLOGICAL Hx Falls: No - GASTROINTESTINAL Hx Gastrointestinal Disorders: No - GENITOURINARY/GYNECOLOGICAL Hx Genitourinary Disorders: No - PSYCHIATRIC Hx Psychophysiologic Disorder: No Hx Substance Use: No - SURGICAL HISTORY Hx Surgeries: Yes Other/Comment: toe surgery - ANESTHESIA Hx Anesthesia: No Hx Anesthesia Reactions: No Hx Malignant Hyperthermia: No Meds Allergies/Adverse Reactions: Allergies Allergy/AdvReac Type Severity Reaction Status Date / Time vancomycin Allergy ITCHING Verified 08/22/17 14:19 - Medications Medications: Current Medications Amlodipine Besylate (Norvasc) 2.5 mg PO DAILY [facility] Last Admin: 08/24/17 09:09 Dose: Not Given Amlodipine Besylate (Norvasc) 5 mg PO DAILY [facility] Last Admin: 08/24/17 17:25 Dose: 5 mg Enoxaparin Sodium (Lovenox) 40 mg SC DAILY [facility] PRN Reason: Protocol Last Admin: 08/24/17 09:07 Dose: Not Given Glipizide (Glucotrol Xl) 5 mg PO BRK [facility] Last Admin: 08/24/17 09:05 Dose: Not Given Ampicillin Sodium/Sulbactam (Sodium 3 gm/ Sodium Chloride) 100 mls @ 100 mls/ hr IVPB Q6 [facility] Last Admin: 08/24/17 21:16 Dose: 100 mls/hr Insulin Human Regular (Humulin R) 0 units SC ACHS [facility] PRN Reason: Protocol Last Admin: 08/24/17 21:20 Dose: Not Given Lactobacillus Acidophilus (Bacid Acidophilus) 1 cap PO BID [facility] Last Admin: 08/24/17 17:25 Dose: 1 cap Metformin HCl (Glucophage) 1,000 mg PO BID [facility] Last Admin: 08/24/17 17:25 Dose: 1,000 mg Nystatin/Triamcinolone Acetonide (Mycolog Ii) 1 applic TOP BID [facility] Last Admin: 08/24/17 17:28 Dose: Not Given Sitagliptin Phosphate (Januvia) 100 mg PO DAILY [facility] Last Admin: 08/24/17 09:06 Dose: Not Given Physical Exam - Constitutional Appears: Well - Head Exam Head Exam: ATRAUMATIC, NORMAL INSPECTION, NORMOCEPHALIC - Eye Exam Eye Exam: EOMI, Normal appearance, PERRL Pupil Exam: NORMAL ACCOMODATION, PERRL - ENT Exam ENT Exam: Mucous Membranes Moist, Normal Exam - Neck Exam Neck exam: Positive for: Normal Inspection - Respiratory Exam Respiratory Exam: Clear to Auscultation Bilateral, NORMAL BREATHING PATTERN - Cardiovascular Exam Cardiovascular Exam: REGULAR RHYTHM, RRR, +S1, +S2, Systolic Murmur - GI/Abdominal Exam GI & Abdominal Exam: Normal Bowel Sounds, Soft. absent: Tenderness - Extremities Exam Extremities exam: Positive for: normal inspection - Back Exam Back exam: NORMAL INSPECTION - Neurological Exam Neurological exam: Alert, CN II-XII Intact, Normal Gait, Oriented x3, Reflexes Normal - Psychiatric Exam Psychiatric exam: Normal Affect, Normal Mood - Skin Skin Exam: Dry, Intact, Normal Color, Warm Results - Vital Signs Recent Vital Signs: Last Vital Signs Temp 97.0 F L 08/24/17 21:11 Pulse 85 08/24/17 22:30 Resp 20 08/24/17 22:30 BP 140/70 08/24/17 22:30 Pulse Ox 98 08/24/17 22:30 - Labs Result Diagrams: 08/22/17 17:26 08/22/17 17:26 Labs: Laboratory Results - last 24 hr 08/24/17 08/24/17 08/24/17 03:25 06:30 10:13 POC Glucose (mg/dL) 254 H 241 H 250 H 08/24/17 20:37 POC Glucose (mg/dL) 306 H Assessment & Plan (1) Endocarditis Assessment and Plan: OLIMPIA done showed no evidence of vegetations Status: Acute (2) Bacteremia Status: Acute (3) Sepsis Status: Acute (4) Diabetes Status: Chronic (5) Mitral regurgitation Status: Acute (6) Hypertensive cardiovascular disease Status: Chronic
[2017-08-25] MEDS: Ampicillin/Sulbactam 3 GM in Sodium Chloride 0.9% 100 ML IVPB SCH ×2 (03:55→10:03)
[2017-08-25] MEDS: Insulin Regular 100 units/ml SC SCH ×4 (07:18→22:06)
[2017-08-25] MEDS: Enoxaparin 40 mg Syringe SC SCH (08:22)
[2017-08-25] MEDS: GlipiZIDE 5 mg SR Tab PO SCH (08:23)
[2017-08-25] MEDS: Lactobacillus Acidophilus 500 MU Cap PO SCH ×2 (08:23→16:07)
[2017-08-25] MEDS: Mycolog II CREAM TOP SCH ×2 (09:00→17:24)
--- NOTE | 2017-08-25 15:30 | CP.PCM.PN ---
Subjective - Date & Time of Evaluation Date of Evaluation: 08/25/17 Time of Evaluation: 15:31 - Subjective Subjective: Patient c/o same dyspepsia. The OLIMPIA is negative for vegetation. Will follow US of abd. decrease the dosage of iv antbx. Objective - Vital Signs/Intake and Output Vital Signs (last 24 hours): Temp Pulse Resp BP Pulse Ox 97.9 F 97 H 20 147/73 99 08/25/17 07:48 08/25/17 08:23 08/25/17 07:48 08/25/17 08:23 08/25/17 07:48 - Medications Medications: Current Medications Amlodipine Besylate (Norvasc) 5 mg PO DAILY [facility] Last Admin: 08/25/17 08:23 Dose: 5 mg Enoxaparin Sodium (Lovenox) 40 mg SC DAILY [facility] PRN Reason: Protocol Last Admin: 08/25/17 08:22 Dose: 40 mg Glipizide (Glucotrol Xl) 5 mg PO BRK [facility] Last Admin: 08/25/17 08:23 Dose: 5 mg Ampicillin Sodium/Sulbactam (Sodium 1.5 gm/ Sodium Chloride) 100 mls @ 100 mls/ hr IVPB 0600,1200,1800,0000 [facility] Insulin Human Regular (Humulin R) 0 units SC ACHS [facility] PRN Reason: Protocol Last Admin: 08/25/17 12:22 Dose: Not Given Lactobacillus Acidophilus (Bacid Acidophilus) 1 cap PO BID [facility] Last Admin: 08/25/17 08:23 Dose: 1 cap Metformin HCl (Glucophage) 1,000 mg PO BID [facility] Last Admin: 08/25/17 08:23 Dose: 1,000 mg Nystatin/Triamcinolone Acetonide (Mycolog Ii) 1 applic TOP BID [facility] Last Admin: 08/24/17 17:28 Dose: Not Given Pantoprazole Sodium (Protonix Ec Tab) 40 mg PO DAILY [facility] Sitagliptin Phosphate (Januvia) 100 mg PO DAILY [facility] Last Admin: 08/25/17 08:22 Dose: 100 mg - Labs Labs: 08/22/17 17:26 08/22/17 17:26 PT 11.1 Seconds (9.8-13.1) 08/22/17 17:26 INR 1.1 (0.9-1.2) 08/22/17 17:26 APTT 39.9 Seconds (25.6-37.1) H 08/22/17 17:26 - Constitutional Appears: Well - Head Exam Head Exam: ATRAUMATIC, NORMAL INSPECTION, NORMOCEPHALIC - Eye Exam Eye Exam: Normal appearance - ENT Exam ENT Exam: Mucous Membranes Moist - Neck Exam Neck Exam: Full ROM - Respiratory Exam Respiratory Exam: Clear to Ausculation Bilateral - Cardiovascular Exam Cardiovascular Exam: REGULAR RHYTHM, +S1, +S2 - GI/Abdominal Exam GI & Abdominal Exam: Soft, Normal Bowel Sounds - Neurological Exam Neurological Exam: Alert, Awake, CN II-XII Intact, Normal Gait, Oriented x3 - Psychiatric Exam Psychiatric exam: Normal Affect - Skin Skin Exam: Normal Color Assessment and Plan (1) Bacteremia Status: Acute (2) Sepsis Status: Acute (3) Diabetes Status: Chronic (4) Hyperglycemia Status: Chronic (5) Hypertensive cardiovascular disease Status: Chronic - Assessment and Plan (Free Text) Plan: Continue present rx.
[2017-08-25] MEDS: Pantoprazole 40 mg EC Tab PO SCH (16:07)
[2017-08-25] MEDS: Ampicillin/Sulbactam 1.5 GM in Sodium Chloride 0.9% 100 ML IVPB SCH (19:18)
[2017-08-26] MEDS: Ampicillin/Sulbactam 1.5 GM in Sodium Chloride 0.9% 100 ML IVPB SCH ×5 (00:08→23:01)
[2017-08-26] MEDS: Insulin Regular 100 units/ml SC SCH ×4 (07:54→21:57)
[2017-08-26] MEDS: Pantoprazole 40 mg EC Tab PO SCH (09:06)
[2017-08-26] MEDS: Lactobacillus Acidophilus 500 MU Cap PO SCH ×2 (09:06→17:32)
[2017-08-26] MEDS: GlipiZIDE 5 mg SR Tab PO SCH (09:06)
[2017-08-26] MEDS: Enoxaparin 40 mg Syringe SC SCH (09:07)
[2017-08-26] MEDS: Mycolog II CREAM TOP SCH ×2 (10:29→17:33)
--- NOTE | 2017-08-26 16:33 | CP.PCM.PN ---
Subjective - Date & Time of Evaluation Date of Evaluation: 08/26/17 Time of Evaluation: 08:00 - Subjective Subjective: echo neg repeat c/s neg cont rx x 7 days Objective - Vital Signs/Intake and Output Vital Signs (last 24 hours): Temp Pulse Resp BP Pulse Ox 97 F L 82 20 132/62 99 08/26/17 16:18 08/26/17 16:18 08/26/17 16:18 08/26/17 16:18 08/26/17 16:18 - Medications Medications: Current Medications Amlodipine Besylate (Norvasc) 5 mg PO DAILY [facility] Last Admin: 08/26/17 09:06 Dose: 5 mg Glipizide (Glucotrol Xl) 5 mg PO BRK [facility] Last Admin: 08/26/17 09:06 Dose: 5 mg Ampicillin Sodium/Sulbactam (Sodium 1.5 gm/ Sodium Chloride) 100 mls @ 100 mls/ hr IVPB 0600,1200,1800,0000 [facility] Last Admin: 08/26/17 12:21 Dose: 100 mls/hr Insulin Human Regular (Humulin R) 0 units SC ACHS [facility] PRN Reason: Protocol Last Admin: 08/26/17 12:22 Dose: 8 unit Lactobacillus Acidophilus (Bacid Acidophilus) 1 cap PO BID [facility] Last Admin: 08/26/17 09:06 Dose: 1 cap Metformin HCl (Glucophage) 1,000 mg PO BID [facility] Last Admin: 08/26/17 09:06 Dose: 1,000 mg Nystatin/Triamcinolone Acetonide (Mycolog Ii) 1 applic TOP BID [facility] Last Admin: 08/26/17 10:29 Dose: Not Given Pantoprazole Sodium (Protonix Ec Tab) 40 mg PO DAILY [facility] Last Admin: 08/26/17 09:06 Dose: 40 mg Sitagliptin Phosphate (Januvia) 100 mg PO DAILY [facility] Last Admin: 08/26/17 09:06 Dose: 100 mg - Labs Labs: 08/22/17 17:26 08/22/17 17:26 PT 11.1 Seconds (9.8-13.1) 08/22/17 17:26 INR 1.1 (0.9-1.2) 08/22/17 17:26 APTT 39.9 Seconds (25.6-37.1) H 09/23/17 17:26 - Constitutional Appears: Non-toxic, Chronically Ill - Head Exam Head Exam: NORMOCEPHALIC - Eye Exam Eye Exam: PERRL - ENT Exam ENT Exam: Mucous Membranes Dry - Neck Exam Neck Exam: absent: Lymphadenopathy - Respiratory Exam Respiratory Exam: Decreased Breath Sounds - Cardiovascular Exam Cardiovascular Exam: REGULAR RHYTHM - GI/Abdominal Exam GI & Abdominal Exam: Distended, Soft - Rectal Exam Rectal Exam: Deferred - Exam Exam: NORMAL INSPECTION - Extremities Exam Extremities Exam: absent: Pedal Edema - Back Exam Back Exam: absent: CVA tenderness (L), CVA tenderness (R) - Neurological Exam Neurological Exam: Alert, Awake, Oriented x3 - Psychiatric Exam Psychiatric exam: Normal Mood - Skin Skin Exam: Dry Assessment and Plan (1) Bacteremia Status: Acute
--- NOTE | 2017-08-26 18:50 | CP.PCM.PN ---
Subjective - Date & Time of Evaluation Date of Evaluation: 08/26/17 Time of Evaluation: 18:50 - Subjective Subjective: Comfortable Objective - Vital Signs/Intake and Output Vital Signs (last 24 hours): Temp Pulse Resp BP Pulse Ox 97 F L 82 20 132/62 99 08/26/17 16:18 08/26/17 16:18 08/26/17 16:18 08/26/17 16:18 08/26/17 16:18 - Medications Medications: Current Medications Amlodipine Besylate (Norvasc) 5 mg PO DAILY [facility] Last Admin: 08/26/17 09:06 Dose: 5 mg Glipizide (Glucotrol Xl) 5 mg PO BRK [facility] Last Admin: 08/26/17 09:06 Dose: 5 mg Ampicillin Sodium/Sulbactam (Sodium 1.5 gm/ Sodium Chloride) 100 mls @ 100 mls/ hr IVPB 0600,1200,1800,0000 [facility] Last Admin: 08/26/17 17:32 Dose: 100 mls/hr Insulin Human Regular (Humulin R) 0 units SC ACHS [facility] PRN Reason: Protocol Last Admin: 08/26/17 17:33 Dose: Not Given Lactobacillus Acidophilus (Bacid Acidophilus) 1 cap PO BID [facility] Last Admin: 08/26/17 17:32 Dose: 1 cap Metformin HCl (Glucophage) 1,000 mg PO BID [facility] Last Admin: 08/26/17 17:33 Dose: 1,000 mg Nystatin/Triamcinolone Acetonide (Mycolog Ii) 1 applic TOP BID [facility] Last Admin: 08/26/17 17:33 Dose: 1 applic Pantoprazole Sodium (Protonix Ec Tab) 40 mg PO DAILY [facility] Last Admin: 08/26/17 09:06 Dose: 40 mg Sitagliptin Phosphate (Januvia) 100 mg PO DAILY [facility] Last Admin: 08/26/17 09:06 Dose: 100 mg - Labs Labs: 08/22/17 17:26 08/22/17 17:26 PT 11.1 Seconds (9.8-13.1) 08/22/17 17:26 INR 1.1 (0.9-1.2) 08/22/17 17:26 APTT 39.9 Seconds (25.6-37.1) H 08/22/17 17:26 - Constitutional Appears: Well - Head Exam Head Exam: ATRAUMATIC, NORMAL INSPECTION, NORMOCEPHALIC - Eye Exam Eye Exam: Normal appearance - ENT Exam ENT Exam: Mucous Membranes Moist - Neck Exam Neck Exam: Full ROM - Respiratory Exam Respiratory Exam: Clear to Ausculation Bilateral - Cardiovascular Exam Cardiovascular Exam: REGULAR RHYTHM, +S1, +S2 - GI/Abdominal Exam GI & Abdominal Exam: Soft, Normal Bowel Sounds - Neurological Exam Neurological Exam: Alert, Awake, CN II-XII Intact, Normal Gait, Oriented x3 - Psychiatric Exam Psychiatric exam: Normal Affect - Skin Skin Exam: Normal Color Assessment and Plan (1) Bacteremia Status: Acute (2) Sepsis Status: Acute (3) Diabetes Status: Chronic (4) Hyperglycemia Status: Chronic (5) Hypertensive cardiovascular disease Status: Chronic
[2017-08-27] MEDS: Ampicillin/Sulbactam 1.5 GM in Sodium Chloride 0.9% 100 ML IVPB SCH (05:17)
[2017-08-27] MEDS: Insulin Regular 100 units/ml SC SCH ×4 (06:30→21:34)
[2017-08-27] MEDS: Pantoprazole 40 mg EC Tab PO SCH (09:32)
[2017-08-27] MEDS: Mycolog II CREAM TOP SCH ×2 (09:36→16:35)
[2017-08-27] MEDS: GlipiZIDE 5 mg SR Tab PO SCH (09:37)
[2017-08-27] MEDS: Lactobacillus Acidophilus 500 MU Cap PO SCH ×2 (09:38→16:35)
--- NOTE | 2017-08-27 13:20 | CP.PCM.PN ---
Subjective - Date & Time of Evaluation Date of Evaluation: 08/27/17 Time of Evaluation: 13:20 - Subjective Subjective: Patient c/o dyspepsia Objective - Vital Signs/Intake and Output Vital Signs (last 24 hours): Temp Pulse Resp BP Pulse Ox 98 F 97 H 20 128/66 98 08/27/17 08:38 08/27/17 09:32 08/27/17 08:38 08/27/17 09:32 08/27/17 08:38 - Medications Medications: Current Medications Amlodipine Besylate (Norvasc) 5 mg PO DAILY [facility] Last Admin: 08/27/17 09:32 Dose: 5 mg Glipizide (Glucotrol Xl) 10 mg PO BRK [facility] Ceftriaxone Sodium 1 gm/ (Sodium Chloride) 100 mls @ 100 mls/hr IVPB DAILY@ 1700 [facility] Insulin Human Regular (Humulin R) 0 units SC ACHS [facility] PRN Reason: Protocol Last Admin: 08/27/17 12:34 Dose: 8 unit Lactobacillus Acidophilus (Bacid Acidophilus) 1 cap PO BID [facility] Last Admin: 08/27/17 09:38 Dose: 1 cap Metformin HCl (Glucophage) 1,000 mg PO BID [facility] Last Admin: 08/27/17 09:36 Dose: 1,000 mg Metronidazole (Flagyl) 250 mg PO Q8 [facility] Nystatin/Triamcinolone Acetonide (Mycolog Ii) 1 applic TOP BID [facility] Last Admin: 08/27/17 09:36 Dose: 1 applic Pantoprazole Sodium (Protonix Ec Tab) 40 mg PO DAILY [facility] Last Admin: 08/27/17 09:32 Dose: 40 mg Sitagliptin Phosphate (Januvia) 100 mg PO DAILY [facility] Last Admin: 08/27/17 09:37 Dose: 100 mg - Labs Labs: 08/22/17 17:26 08/22/17 17:26 PT 11.1 Seconds (9.8-13.1) 08/22/17 17:26 INR 1.1 (0.9-1.2) 08/22/17 17:26 APTT 39.9 Seconds (25.6-37.1) H 08/22/17 17:26 - Constitutional Appears: Non-toxic - Head Exam Head Exam: ATRAUMATIC, NORMAL INSPECTION, NORMOCEPHALIC - ENT Exam ENT Exam: Mucous Membranes Moist - Neck Exam Neck Exam: Full ROM - Respiratory Exam Respiratory Exam: Clear to Ausculation Bilateral - Cardiovascular Exam Cardiovascular Exam: REGULAR RHYTHM, +S1, +S2 - GI/Abdominal Exam GI & Abdominal Exam: Soft, Normal Bowel Sounds - Neurological Exam Neurological Exam: Alert, Awake, CN II-XII Intact, Normal Gait, Oriented x3 - Psychiatric Exam Psychiatric exam: Anxious - Skin Skin Exam: Normal Color Assessment and Plan (1) Bacteremia Status: Acute (2) Sepsis Status: Acute (3) Diabetes Status: Chronic (4) Hyperglycemia Status: Chronic (5) Hypertensive cardiovascular disease Status: Chronic
--- NOTE | 2017-08-27 13:36 | CP.PCM.CON ---
History of Present Illness - History of Present Illness History of Present Illness: Patient present with dyspepsia and diarrhea. 77 year old female presents with epigastric discomfort and alternating diarrhea for several days. Pt is currently on ABX, denies fever chills rectal bleeding All systems reviewed and negative except for positive of HPI Review of Systems - Constitutional Constitutional: As Per HPI - Cardiovascular Cardiovascular: As Per HPI - Respiratory Respiratory: As Per HPI - Gastrointestinal Gastrointestinal: Diarrhea, Dyspepsia, Nausea - Genitourinary Genitourinary: As Per HPI - Musculoskeletal Musculoskeletal: As Per HPI - Integumentary Integumentary: As Per HPI - Neurological Neurological: As Per HPI - Psychiatric Psychiatric: As Per HPI - Endocrine Endocrine: As Per HPI Past Patient History - Past Medical History & Family History Past Medical History?: Yes - Past Social History Smoking Status: Never Smoked - CARDIAC Hx Hypercholesterolemia: Yes - PULMONARY Hx Respiratory Disorders: No Other/Comment: influenza - NEUROLOGICAL Hx Neurological Disorder: No - HEENT Hx HEENT Problems: No - RENAL Hx Chronic Kidney Disease: No - ENDOCRINE/METABOLIC Hx Endocrine Disorders: Yes Hx Diabetes Mellitus Type 2: Yes Other/Comment: peripheral neuropathy, ketosis - HEMATOLOGICAL/ONCOLOGICAL Hx Blood Disorders: No Hx Hepatitis C: Yes - INTEGUMENTARY Hx Dermatological Problems: No - MUSCULOSKELETAL/RHEUMATOLOGICAL Hx Falls: No - GASTROINTESTINAL Hx Gastrointestinal Disorders: No - GENITOURINARY/GYNECOLOGICAL Hx Genitourinary Disorders: No - PSYCHIATRIC Hx Psychophysiologic Disorder: No Hx Substance Use: No - SURGICAL HISTORY Hx Surgeries: Yes Other/Comment: toe surgery - ANESTHESIA Hx Anesthesia: No Hx Anesthesia Reactions: No Hx Malignant Hyperthermia: No Meds Allergies/Adverse Reactions: Allergies Allergy/AdvReac Type Severity Reaction Status Date / Time vancomycin Allergy ITCHING Verified 08/22/17 14:19 - Medications Medications: Current Medications Amlodipine Besylate (Norvasc) 5 mg PO DAILY [facility] Last Admin: 08/27/17 09:32 Dose: 5 mg Glipizide (Glucotrol Xl) 10 mg PO BRK [facility] Ceftriaxone Sodium 1 gm/ (Sodium Chloride) 100 mls @ 100 mls/hr IVPB DAILY@ 1700 [facility] Insulin Human Regular (Humulin R) 0 units SC ACHS [facility] PRN Reason: Protocol Last Admin: 08/27/17 12:34 Dose: 8 unit Lactobacillus Acidophilus (Bacid Acidophilus) 1 cap PO BID [facility] Last Admin: 08/27/17 09:38 Dose: 1 cap Metformin HCl (Glucophage) 1,000 mg PO BID [facility] Last Admin: 08/27/17 09:36 Dose: 1,000 mg Metronidazole (Flagyl) 250 mg PO Q8 [facility] Nystatin/Triamcinolone Acetonide (Mycolog Ii) 1 applic TOP BID [facility] Last Admin: 08/27/17 09:36 Dose: 1 applic Pantoprazole Sodium (Protonix Ec Tab) 40 mg PO DAILY [facility] Last Admin: 08/27/17 09:32 Dose: 40 mg Sitagliptin Phosphate (Januvia) 100 mg PO DAILY [facility] Last Admin: 08/27/17 09:37 Dose: 100 mg Physical Exam - Constitutional Appears: Well - Head Exam Head Exam: ATRAUMATIC, NORMAL INSPECTION, NORMOCEPHALIC - Eye Exam Eye Exam: Conjunctival injection - ENT Exam ENT Exam: Mucous Membranes Moist, Normal Exam - Neck Exam Neck exam: Positive for: Normal Inspection - Respiratory Exam Respiratory Exam: Clear to Auscultation Bilateral, NORMAL BREATHING PATTERN - Cardiovascular Exam Cardiovascular Exam: REGULAR RHYTHM - GI/Abdominal Exam GI & Abdominal Exam: Normal Bowel Sounds, Soft - Rectal Exam Rectal Exam: Deferred - Neurological Exam Neurological exam: Alert, CN II-XII Intact, Normal Gait, Oriented x3, Reflexes Normal - Psychiatric Exam Psychiatric exam: Anxious - Skin Skin Exam: Normal Color Results - Vital Signs Recent Vital Signs: Last Vital Signs Temp 98 F 08/27/17 08:38 Pulse 97 H 08/27/17 09:32 Resp 20 08/27/17 08:38 BP 128/66 08/27/17 09:32 Pulse Ox 98 08/27/17 08:38 - Labs Result Diagrams: 08/22/17 17:26 08/22/17 17:26 Labs: Laboratory Results - last 24 hr 08/26/17 08/26/17 08/27/17 16:12 20:43 05:18 POC Glucose (mg/dL) 119 H 226 H 313 H 08/27/17 10:57 POC Glucose (mg/dL) 371 H Assessment & Plan (1) Dyspepsia Status: Acute (2) Dyspepsia Status: Acute (3) Diarrhea Status: Acute (4) GERD (gastroesophageal reflux disease) Status: Acute - Assessment and Plan (Free Text) Plan: Stool culture stool c dil Will schedule for egd and screening colonoscopy as outpatient
[2017-08-27 13:59] LABS: BLOOD UREA NITROGEN 12 mg/dl (7-17); CALCIUM 9.4 mg/dL (8.4-10.2); CARBON DIOXIDE 22 mmol/L (22-30); CHLORIDE 103 mmol/L (98-107); GFR AFRICAN-AMERICAN > 60; GLUCOSE,RANDOM 302 mg/dL (65-105); POTASSIUM 4.9 MMOL/L (3.6-5.0); SODIUM 140 mmol/l (132-148)
[2017-08-28] MEDS: Insulin Regular 100 units/ml SC SCH ×4 (06:53→21:51)
[2017-08-28] MEDS: Pantoprazole 40 mg EC Tab PO SCH (09:02)
[2017-08-28] MEDS: GlipiZIDE 10 mg SR Tab PO SCH (09:03)
[2017-08-28] MEDS: Lactobacillus Acidophilus 500 MU Cap PO SCH ×2 (09:07→17:14)
[2017-08-28] MEDS: Mycolog II CREAM TOP SCH ×2 (09:08→17:15)
--- NOTE | 2017-08-28 13:07 | CP.PCM.PN ---
Subjective - Date & Time of Evaluation Date of Evaluation: 08/28/17 Time of Evaluation: 13:07 - Subjective Subjective: Comfortable no c/o Objective - Vital Signs/Intake and Output Vital Signs (last 24 hours): Temp Pulse Resp BP Pulse Ox 98.2 F 84 20 117/58 L 97 08/28/17 08:20 08/28/17 09:02 08/28/17 08:20 08/28/17 09:02 08/28/17 08:20 - Medications Medications: Current Medications Amlodipine Besylate (Norvasc) 5 mg PO DAILY [facility] Last Admin: 08/28/17 09:02 Dose: 5 mg Glipizide (Glucotrol Xl) 10 mg PO BRK [facility] Last Admin: 08/28/17 09:03 Dose: 10 mg Ceftriaxone Sodium 1 gm/ (Sodium Chloride) 100 mls @ 100 mls/hr IVPB DAILY@ 1700 [facility] Last Admin: 08/27/17 16:33 Dose: 100 mls/hr Insulin Human Regular (Humulin R) 0 units SC ACHS [facility] PRN Reason: Protocol Last Admin: 08/28/17 12:36 Dose: 3 unit Lactobacillus Acidophilus (Bacid Acidophilus) 1 cap PO BID [facility] Last Admin: 08/28/17 09:07 Dose: 1 cap Metformin HCl (Glucophage) 1,000 mg PO BID [facility] Last Admin: 08/28/17 09:02 Dose: 1,000 mg Metronidazole (Flagyl) 250 mg PO Q8 [facility] Last Admin: 08/28/17 09:02 Dose: 250 mg Nystatin/Triamcinolone Acetonide (Mycolog Ii) 1 applic TOP BID [facility] Last Admin: 08/28/17 09:08 Dose: 1 applic Pantoprazole Sodium (Protonix Ec Tab) 40 mg PO DAILY [facility] Last Admin: 08/28/17 09:02 Dose: 40 mg Sitagliptin Phosphate (Januvia) 100 mg PO DAILY [facility] Last Admin: 08/28/17 09:02 Dose: 100 mg - Labs Labs: 08/22/17 17:26 08/27/17 13:30 PT 11.1 Seconds (9.8-13.1) 08/22/17 17:26 INR 1.1 (0.9-1.2) 08/22/17 17:26 APTT 39.9 Seconds (25.6-37.1) H 08/22/17 17:26 - Constitutional Appears: Well - Head Exam Head Exam: ATRAUMATIC, NORMAL INSPECTION - Eye Exam Eye Exam: Normal appearance - Neck Exam Neck Exam: Full ROM - Respiratory Exam Respiratory Exam: Clear to Ausculation Bilateral - Cardiovascular Exam Cardiovascular Exam: REGULAR RHYTHM, +S1, +S2 - GI/Abdominal Exam GI & Abdominal Exam: Soft, Normal Bowel Sounds - Neurological Exam Neurological Exam: Alert, Awake, CN II-XII Intact, Normal Gait, Oriented x3 - Psychiatric Exam Psychiatric exam: Normal Affect - Skin Skin Exam: Normal Color Assessment and Plan (1) Bacteremia Status: Acute (2) Sepsis Status: Acute (3) Diabetes Status: Chronic (4) Hyperglycemia Status: Chronic (5) Hypertensive cardiovascular disease Status: Chronic - Assessment and Plan (Free Text) Plan: Continue present rx.
[2017-08-28 20:02] VITALS: O2SAT 100
[2017-08-29] MEDS: Insulin Regular 100 units/ml SC SCH ×2 (07:02→11:27)
[2017-08-29 08:34] VITALS: BP 145/76; PULSE 85; TEMP 97.6
--- NOTE | 2017-08-29 08:48 | CP.PCM.HP ---
History of Present Illness - History of Present Illness History of Present Illness: Patient c/o same generalized malaise with abdominal pain and weakness. She was seen in ER and eventually discharged. In ER she had a blood culture that was positive for gram positive cocci in chain. The patient was admired for further evaluation and IV antibx. Previously she was treated with oral broad spectrum antibx with no resolution of the general symptoms. Will follow culture and sensitivity. She had an allergic reaction to vancomicin. Patient with severe co morbidity DM, CAD, HTN. For TCU rehabilitation and iv rx Present on Admission - Present on Admission Any Indicators Present on Admission: No Past Patient History - Past Medical History & Family History Past Medical History?: Yes - Past Social History Smoking Status: Never Smoked - CARDIAC Hx Hypercholesterolemia: Yes - PULMONARY Hx Respiratory Disorders: No Other/Comment: influenza - NEUROLOGICAL Hx Neurological Disorder: No - HEENT Hx HEENT Problems: No - RENAL Hx Chronic Kidney Disease: No - ENDOCRINE/METABOLIC Hx Endocrine Disorders: Yes Hx Diabetes Mellitus Type 2: Yes Other/Comment: peripheral neuropathy, ketosis - HEMATOLOGICAL/ONCOLOGICAL Hx Blood Disorders: No Hx Hepatitis C: Yes - INTEGUMENTARY Hx Dermatological Problems: No - MUSCULOSKELETAL/RHEUMATOLOGICAL Hx Falls: No - GASTROINTESTINAL Hx Gastrointestinal Disorders: No - GENITOURINARY/GYNECOLOGICAL Hx Genitourinary Disorders: No - PSYCHIATRIC Hx Psychophysiologic Disorder: No Hx Substance Use: No - SURGICAL HISTORY Hx Surgeries: Yes Other/Comment: toe surgery - ANESTHESIA Hx Anesthesia: No Hx Anesthesia Reactions: No Hx Malignant Hyperthermia: No Meds Home Medications: Home Medication List Medication Instructions Recorded Confirmed Type GlipiZIDE SR [Glucotrol XL] 10 mg PO BRK tab 08/29/17 Rx Lactobacillus Acidophilus [Bacid 1 cap PO BID cap 08/29/17 Rx Acidophilus] MetFORMIN [glucoPHAGE] 1,000 mg PO BID tab 08/29/17 Rx Pantoprazole [Protonix EC Tab] 40 mg PO DAILY ect 08/29/17 Rx amLODIPine [Norvasc] 5 mg PO DAILY tab 08/29/17 Rx Allergies/Adverse Reactions: Allergies Allergy/AdvReac Type Severity Reaction Status Date / Time vancomycin Allergy ITCHING Verified 08/22/17 14:19 Physical Exam - Constitutional Additional comments: PE as per note 08/23 Results - Vital Signs Recent Vital Signs: Last Vital Signs Temp 97.6 F 08/29/17 08:33 Pulse 85 08/29/17 08:33 Resp 20 08/29/17 08:33 BP 145/76 08/29/17 08:33 Pulse Ox 100 08/29/17 08:33 - Labs Result Diagrams: 08/22/17 17:26 08/27/17 13:30 Labs: Laboratory Results - last 24 hr 08/28/17 08/28/17 08/28/17 10:51 16:05 19:55 POC Glucose (mg/dL) 224 H 170 H 151 H 08/29/17 04:25 POC Glucose (mg/dL) 182 H Assessment & Plan (1) Bacteremia Status: Acute (2) Sepsis Status: Acute (3) Diabetes Status: Chronic (4) Hyperglycemia Status: Chronic (5) Hypertensive cardiovascular disease Status: Chronic
--- NOTE | 2017-08-29 08:49 | CP.PCM.DIS ---
Provider - Provider Date of Admission: 08/22/17 14:20 Attending physician: Darren Coelho MD Time Spent in preparation of Discharge (in minutes): 30 Diagnosis - Discharge Diagnosis (1) Bacteremia Status: Acute (2) Sepsis Status: Acute (3) Diabetes Status: Chronic (4) Hyperglycemia Status: Chronic (5) Hypertensive cardiovascular disease Status: Chronic Hospital Course - Lab Results Lab Results: Most Recent Lab Values WBC 8.5 K/uL (4.8-10.8) 08/22/17 17:26 RBC 4.20 Mil/uL (3.80-5.20) 08/22/17 17:26 Hgb 13.1 g/dL (12.0-16.0) 08/22/17 17: Hct 39.1 % (34.0-47.0) 08/22/17 17: MCV 93.1 fl (81.0-99.0) 08/22/17 17: MCH 31.3 pg (27.0-31.0) H 08/22/17 17:26 MCHC 33.6 g/dL (33.0-37.0) 08/22/17 17:26 RDW 13.8 % (11.5-14.5) 08/22/17 17:26 Plt Count 231 K/uL (130-400) 08/22/17 17:26 PT 11.1 Seconds (9.8-13.1) 08/22/17 17:26 INR 1.1 (0.9-1.2) 08/22/17 17:26 APTT 39.9 Seconds (25.6-37.1) H 08/22/17 17:26 Sodium 140 mmol/l (132-148) 08/27/17 13:30 Potassium 4.9 MMOL/L (3.6-5.0) 08/27/17 13:30 Chloride 103 mmol/L (98-107) 08/27/17 13:30 Carbon Dioxide 22 mmol/L (22-30) 08/27/17 13:30 Anion Gap 20 (10-20) 08/27/17 13:30 BUN 12 mg/dl (7-17) 08/27/17 13:30 Creatinine 0.7 mg/dL (0.7-1.2) 08/27/17 13:30 Est GFR ( Amer) > 60 08/27/17 13:30 Est GFR (Non-Af Amer) > 60 08/27/17 13:30 POC Glucose (mg/dL) 182 mg/dL (65-110) H 08/29/17 04:25 Random Glucose 302 mg/dL (65-105) H 08/27/17 13:30 Calcium 9.4 mg/dL (8.4-10.2) 08/27/17 13:30 C. difficile Ag & Toxin Negative (NEGATIVE) 08/25/17 14:00 - Hospital Course Hospital Course: Patient c/o same generalized malaise with abdominal pain and weakness. She was seen in ER and eventually discharged. In ER she had a blood culture that was positive for gram positive cocci in chain. The patient was admired for further evaluation and IV antibx. Previously she was treated with oral broad spectrum antibx with no resolution of the general symptoms. Will follow culture and sensitivity. She had an allergic reaction to vancomicin. Patient with severe co morbidity DM, CAD, HTN. Patient well responded to rx. Discharge Exam - Head Exam Head Exam: NORMOCEPHALIC - Eye Exam Eye Exam: Normal appearance - Neck Exam Neck exam: Full Rom - Respiratory Exam Respiratory Exam: Clear to PA & Lateral - Cardiovascular Exam Cardiovascular Exam: REGULAR RHYTHM, +S1, +S2 - GI/Abdominal Exam GI & Abdominal Exam: Normal Bowel Sounds - Extremities Exam Extremities exam: normal inspection - Neurological Exam Neurological exam: Alert, CN II-XII Intact, Oriented x3, Reflexes Normal - Psychiatric Exam Psychiatric exam: Normal Affect - Skin Skin Exam: Normal Color Discharge Plan - Follow Up Plan Condition: GOOD Disposition: HOME/ ROUTINE Instructions: Diabetes Mellitus Type 2 in Adults (DC), Bacteremia (DC)
[2017-08-29] MEDS: Lactobacillus Acidophilus 500 MU Cap PO SCH (08:58)
[2017-08-29] MEDS: GlipiZIDE 10 mg SR Tab PO SCH (08:59)
[2017-08-29] MEDS: Pantoprazole 40 mg EC Tab PO SCH (08:59)
[2017-08-29] MEDS: Mycolog II CREAM TOP SCH (09:00)
--- NOTE | 2017-08-31 12:20 | PQF SEPSIS ---
Dr. Coelho, Sepsis and bacteremia are listed in medical record. After study was pt admitted for treatment of sepsis, bacteremia, other or unspecified? This form is a permanent part of the medical record Clarification of your documentation is requested to better reflect the severity of illness and intensity of treatment of your patient. Indicators present [] Temp < 96.8 or > 100.4 [] WBC count > 12,000/mm3 or <000/mm3 or 10% immature neutrophils [] Heart Rate > 90 [] Respiratory Rate > 20 [] Fever or hypothermia [] Chills [x] Positive blood cultures [] Hypotension [] Metabolic acidosis (Elevated lactate level, anion gap or reduced blood pH) [] Acute confusion /Altered Mental Status [] Shock [] Other: [] Location in the medical record that reflects the above clinical findings: [] Treatment Provided: [] PHYSICIAN'S RESPONSE Based on your medical judgment of the clinical indicators outlined above, are you treating this patient for a known or suspected: [] Sepsis / Septicemia Please specify organism if known [x Strep salivaris] [] SIRS (Systemic Inflammatory Response Syndrome) [] Severe Sepsis (Sepsis with Associated Organ Dysfunction) [] Fever of Unknown Origin [] Other, please indicate: [] [] If Unable to Determine, please check the box, sign and date. Present On Admission (POA) Indicator: [yes] Present at the time of admission [] Not present at the time of admission [] Clinically Undetermined In responding to this query, please exercise your independent professional judgment. The fact that a question is asked does not imply that any particular answer is desired or expected. Thank you for your clarification on this documentation. If you have any questions please call:[ ] * Thank you, [ ]Gabby Ayala mobile crane operator PILLO
== END 2017-08-29 14:45 | disposition home or self-care (01) | DRG 872 ==
LOC: H.TCU 14:20
PROVIDERS: ADMIT Internal Medicine; ATTEND Internal Medicine
DX: A40.8 Other streptococcal sepsis (principal); E11.42 Type 2 diabetes mellitus with diabetic polyneuropathy; I11.9 Hypertensive heart disease without heart failure; E11.65 Type 2 diabetes mellitus with hyperglycemia; Z88.1 Allergy status to other antibiotic agents; E78.00 Pure hypercholesterolemia, unspecified; I25.10 Atherosclerotic heart disease of native coronary artery without angina pectoris; Z86.19 Personal history of other infectious and parasitic diseases; I34.0 Nonrheumatic mitral (valve) insufficiency; R10.13 Epigastric pain; R19.7 Diarrhea, unspecified; K21.9 Gastro-esophageal reflux disease without esophagitis

== ENCOUNTER 2017-08-24 10:17 | Day surgery (SDC) | payer MEDICARE ==
[2017-08-24 10:41] VITALS: BMI 28.3
[2017-08-24] MEDS ORDERED: Lactated Ringer's 1,000 ML IV ONE ×2 (11:44→13:27)
[2017-08-24 14:08] VITALS: RESP 20
[2017-08-24 15:54] VITALS: O2SAT 97
[2017-08-24 16:42] VITALS: BP 158/71; PULSE 85; TEMP 98
--- NOTE | 2017-08-27 00:17 | CARD ---
APPROVED REPORT EXAM: Transesophageal echocardiogram with color flow Doppler. INDICATION Infection:Subacute bacterial endocarditis Reason For Test : Rule out endocarditis. PROCEDURE After obtaining informed consent, patient underwent transesophageal echo in the OR recovery room m Type of Sedation : Conscious Sedation Sedation was provided by anesthesiologist. Sedation was achieved with intravenously. Transesophageal probe was inserted and advanced into esophagus without difficulty. The OLIMPIA was performed without complications. Throughout the procedure, the blood pressure, pulse oximetry, cardiac rhythm, and rate were monitored. The patient tolerated the procedure without adverse effects. Recovery from conscious sedation was uneventful and vital signs were stable. LEFT VENTRICLE The left ventricle is normal size. There is mild concentric left ventricular hypertrophy. The left ventricular function is normal. The left ventricular ejection fraction is within the normal range. The Ejection Fraction is 60-65%. There is normal LV segmental wall motion. Transmitral Doppler flow pattern is Grade II-pseudonormal filling dynamics. No left ventricle thrombus noted on this study. There is no ventricular septal defect visualized. There is no left ventricular aneurysm. RIGHT VENTRICLE The right ventricle is normal size. There is normal right ventricular wall thickness. The right ventricular systolic function is normal. ATRIA The left atrium is mildly dilated. The right atrium size is normal. The interatrial septum is intact with no evidence for an atrial septal defect. AORTIC VALVE The aortic valve is mildly sclerotic. No aortic regurgitation is present. There is no aortic valvular stenosis. There is no aortic valvular vegetation. MITRAL VALVE Mitral annular calcification is mild. The mitral valve leaflets are thickened. There is no evidence of mitral valve prolapse. There is no mitral valve stenosis. Mitral regurgitation is mild to moderate. TRICUSPID VALVE The tricuspid valve is normal in structure and function. There is trace tricuspid regurgitation. There is no tricuspid valve prolapse or vegetation. There is no tricuspid valve stenosis. PULMONIC VALVE The pulmonary valve is normal in structure and function. There is no pulmonic valvular regurgitation. There is no pulmonic valvular stenosis. GREAT VESSELS The aortic root is normal in size. The ascending aorta is normal in size. The pulmonary artery is normal. The IVC is normal in size and collapses >50% with inspiration. PERICARDIAL EFFUSION The pericardium appears normal. There is no pleural effusion. <Conclusion> There is mild concentric left ventricular hypertrophy. The left ventricular function is normal. The left ventricular ejection fraction is within the normal range. The Ejection Fraction is 60-65%. Mitral annular calcification is mild. The mitral valve leaflets are thickened. Mitral regurgitation is mild to moderate. There is trace tricuspid regurgitation.
== END 2017-08-24 16:58 ==
LOC: H.OPSURG 10:17
PROVIDERS: ATTEND Specialist
DX: I33.0 Acute and subacute infective endocarditis (principal); E11.9 Type 2 diabetes mellitus without complications; E78.5 Hyperlipidemia, unspecified; I10 Essential (primary) hypertension; K21.9 Gastro-esophageal reflux disease without esophagitis
CPT/HCPCS: 82948; 93312; J7120

== ENCOUNTER 2018-01-20 17:56 | Emergency (ER) | payer MEDICARE ==
[2018-01-20 17:56] VITALS: BMI 28.3
[2018-01-20 18:44] VITALS: BP 164/68; PULSE 79; RESP 16; TEMP 98.3; O2SAT 97
--- NOTE | 2018-01-20 19:58 | ED PDOC ---
HPI: General Adult Time Seen by Provider: 01/20/18 19:48 Chief Complaint (Nursing): Weakness/Neurological Deficit Chief Complaint (Provider): Generalized weakness History Per: Patient History/Exam Limitations: no limitations Additional Complaint(s): Pt reports generalized weakness and decreased appetite X 5 days, started on Cipro yesterday by PMD. Denies CP, SOB, palpitations, nausea, vomiting, abdominal pain, diarrhea, dysuria, hematuria. Daughter states pt was diagnosed with bacteria in blood the last time she had generalized weakness. Past Medical History Reviewed: Nursing Documentation, Vital Signs Vital Signs: Last Vital Signs Temp 98.3 F 01/20/18 18:42 Pulse 79 01/20/18 18:42 Resp 16 01/20/18 18:42 BP 164/68 H 01/20/18 18:42 Pulse Ox 97 01/20/18 23:54 - Medical History PMH: Diabetes, Hypercholesterolemia Denies: Chronic Kidney Disease - Family History Family History: States: Diabetes - Living Arrangements Living Arrangements: With Family - Social History Current smoker - smoking cessation education provided: No - Home Medications Home Medications: Ambulatory Orders Medication Instructions Recorded SITagliptin [Januvia] 100 mg PO DAILY #0 tab 12/11/15 GlipiZIDE SR [Glucotrol XL] 10 mg PO BRK tab 08/29/17 Lactobacillus Acidophilus [Bacid 1 cap PO BID cap 08/29/17 Acidophilus] MetFORMIN [glucoPHAGE] 1,000 mg PO BID tab 08/29/17 Pantoprazole [Protonix EC Tab] 40 mg PO DAILY ect 08/29/17 amLODIPine [Norvasc] 5 mg PO DAILY tab 08/29/17 - Allergies Allergies/Adverse Reactions: Allergies Allergy/AdvReac Type Severity Reaction Status Date / Time vancomycin Allergy ITCHING Verified 01/20/18 18:41 Review of Systems Constitutional: Positive for: Weakness (Generalized), Other (Decreased appetite) . Negative for: Fever, Chills Cardiovascular: Negative for: Chest Pain, Palpitations Respiratory: Negative for: Cough, Shortness of Breath Gastrointestinal: Negative for: Nausea, Vomiting, Abdominal Pain, Diarrhea Genitourinary Female: Negative for: Dysuria, Hematuria Skin: Negative for: Rash, Lesions Neurological: Negative for: Weakness (No focal), Numbness, Headache, Dizziness Physical Exam - Reviewed Nursing Documentation Reviewed: Yes Vital Signs Reviewed: Yes - Physical Exam Appears: Positive for: Well, No Acute Distress Head Exam: Positive for: ATRAUMATIC, NORMAL INSPECTION Skin: Positive for: Normal Color, Warm, Dry Eye Exam: Positive for: Normal appearance, EOMI, PERRL Cardiovascular/Chest: Positive for: Regular Rate, Rhythm Respiratory: Positive for: Normal Breath Sounds. Negative for: Rales, Rhonchi, Wheezing Gastrointestinal/Abdominal: Positive for: Bowel Sounds, Soft, Tenderness (Mild suprapubic) Back: Positive for: Normal Inspection. Negative for: L CVA Tenderness, R CVA Tenderness Extremity: Positive for: Normal ROM Neurologic/Psych: Positive for: Alert, structural steel worker II-XII, Oriented. Negative for: Motor/Sensory Deficits, Aphasia, Facial Droop - Laboratory Results Result Diagrams: 01/20/18 21:13 01/20/18 21:13 - ECG O2 Sat by Pulse Oximetry: 97 Pulse Ox Interpretation: Normal - Radiology X-Ray: Interpreted by Tx X-Ray Interpretation: No Acute Disease - Physician Consult Information Time Consulting Physican Contacted: 23:53 Physician Contacted: Darren Coelho Outcome Of Conversation: Agrees with discharge home, continue Cipro. Medical Decision Making Medical Decision Makin yo with generalized weakness. - labs - EKG - CXR - IVF - CT abd/pelvis Accession No. : [id number] Patient Name / ID : TAVO LONGORIA / [id number] Exam Date : 01/20/2018 23:00:19 ( Approved ) Study Comment : Sex / Age : F / 77Y Creator : ANGIE CARBAJAL Dictator : Human Resources Assistant : Coffee Maker Servicer : ANGIE CARBAJAL Approver2 : Report Date : 01/20/2018 23:45:00 My Comment : [facility] Division of Radiology [address] [place] [address] Tel. no. Patient Name: VON VO Pt. Address: [address] [place] [address] Rec #: [id number] [place] [address]: Erin GRANADOS, Susanne Fisher Pt FAYE Order Location: [facility] : 1940 Female Age: 77 Order #: [id number] Reason for exam: Suprapubic pain CT Scan ABD PELVIS W/O PO OR IV CONT Exam Date: 01/20/18 This imaging exam was performed at [facility] EXAM: CT Abdomen and Pelvis Without Intravenous Contrast CLINICAL HISTORY: 77 years old, female; Pain; Abdominal pain; Other: Suprapubic pain, weakness TECHNIQUE: Axial computed tomography images of the abdomen and pelvis without intravenous contrast. All CT scans at this facility use one or more dose reduction techniques, viz.: automated exposure control; ma/kV adjustment per patient size (including targeted exams where dose is matched to indication; i.e. head); or iterative reconstruction technique. Coronal and sagittal reformatted images were created and reviewed. COMPARISON: CT - ABD PELVIS PO IV CONTRAST 2017-08-19 21:52 FINDINGS: Lower thorax: A small hiatal hernia is present. There is minimal bibasilar atelectasis. ABDOMEN: Again demonstrated is stranding of the fat at the mesenteric root in the upper abdomen. There are a few scattered mildly prominent mesenteric lymph nodes measuring up to 11 mm. Liver: The liver is within normal limits for this noncontrast study. Gallbladder and bile ducts: Unremarkable. No calcified stones. No ductal dilation. Pancreas: Unremarkable. No ductal dilation. Spleen: Unremarkable. No splenomegaly. Adrenals: Unremarkable. No mass. Kidneys and ureters: Horseshoe kidney. Nonobstructing 4 mm stone in the right kidney. Stomach and bowel: The descending colon and sigmoid are thick walled without significant adjacent inflammatory stranding. Findings could be secondary to mild colitis or nondistention. Appendix: A normal appendix is identified. PELVIS: Bladder: Unremarkable. No stones. Reproductive: Again demonstrated is a fat density lesion in the right pelvis measuring 4.5 x 3 cm most likely an ovarian dermoid. ABDOMEN and PELVIS: Intraperitoneal space: Unremarkable. No free air. No significant fluid collection. Bones/joints: Degenerative changes. No acute fracture. No dislocation. Soft tissues: Unremarkable. Vasculature: The vasculature demonstrates diffuse mild atherosclerotic calcification. No abdominal aortic aneurysm. IMPRESSION: Mildly thickwalled descending and sigmoid colon secondary to acute colitis or nondistention. Clinical correlation recommended. Horseshoe kidney. Nonobstructing right renal stone. Probable right ovarian dermoid, unchanged. Dictated By: Angie Carbajal MD Dictated Date/Time: 01/20/182344 Signed By: Angie Valdez MD Date Signed: [id number] Transcribed By: ALEKSANDAR Transcribe Date/Time : 01/20/182344 GISELLA/JORGE LUIS Disposition - Clinical Impression Clinical Impression: Generalized weakness - Disposition Disposition: Routine/Home Disposition Time: 23:54 Condition: STABLE Additional Instructions: CONTINUE CIPRO. Instructions: Generalized Weakness Forms: [facility] (Vietnamese)
[2018-01-20] MEDS ORDERED: Sodium Chloride 0.9% 1,000 ML IV STA (20:10)
[2018-01-20 21:24] LABS: BASO # 0.1 K/uL (0.0-0.2); BASO % 0.8 % (0.0-2.0); EOS # 0.1 K/uL (0.0-0.7); EOS % 1.6 % (0.0-4.0); HEMOGLOBIN 14.2 g/dL (12.0-16.0); LYMPH # 2.3 K/uL (1.0-4.3); LYMPH % 30.8 % (20.0-40.0); MEAN CELL VOLUME 90.7 fl (81.0-99.0); MEAN CORPUSCULAR HEMOGLOBIN 31.2 pg (27.0-31.0); MEAN CORPUSCULAR HGB CONC 34.4 g/dL (33.0-37.0); MEAN PLATELET VOLUME 8.9 fl (7.2-11.7); MONO # 0.7 K/uL (0.0-0.8); MONO % 8.7 % (0.0-10.0); NEUT # 4.4 K/uL (1.8-7.0); NEUT % 58.1 % (50.0-75.0); NRBC % 0.1 % (0.0-0.0); RBC 4.55 Mil/uL (3.80-5.20); RED CELL DISTRIBUTION WIDTH 13.9 % (11.5-14.5); WHITE BLOOD COUNT 7.5 K/uL (4.8-10.8)
[2018-01-20 21:25] LABS: SQUAMOUS EPITHIAL 4 /hpf (0-5); URINE BILIRUBIN NEGATIVE (NEGATIVE); URINE BLOOD NEGATIVE (NEGATIVE); URINE CLARITY SLIGHTY-CLOUDY (Clear); URINE COLOR YELLOW (YELLOW); URINE GLUCOSE (UA) NEG (Normal); URINE LEUKOCYTE ESTERASE TRACE Leu/uL (Negative); URINE NITRATE NEGATIVE (NEGATIVE); URINE PROTEIN 30 mg/dL (NEGATIVE); URINE UROBILINOGEN 0.2-1.0 mg/dL (0.2-1.0)
[2018-01-20 21:31] LABS: ALB/GLOB RATIO 1.5 (1.0-2.1); ALBUMIN 4.3 g/dL (3.5-5.0); ALT/SGPT 36 U/L (9-52); AST/SGOT 25 U/L (14-36); BLOOD UREA NITROGEN 20 mg/dl (7-17); CALCIUM 9.5 mg/dL (8.4-10.2); GFR AFRICAN-AMERICAN > 60; GFR NON-AFRICAN AMERICAN > 60
[2018-01-20 21:34] LABS: PARTIAL THROMBOPLASTIN TIME 34.4 Seconds (25.6-37.1); PROTHROMBIN TIME 11.1 Seconds (9.8-13.1)
--- NOTE | 2018-01-20 23:45 | CT ---
EXAM: CT Abdomen and Pelvis Without Intravenous Contrast CLINICAL HISTORY: 77 years old, female; Pain; Abdominal pain; Other: Suprapubic pain, weakness TECHNIQUE: Axial computed tomography images of the abdomen and pelvis without intravenous contrast. All CT scans at this facility use one or more dose reduction techniques, viz.: automated exposure control; ma/kV adjustment per patient size (including targeted exams where dose is matched to indication; i.e. head); or iterative reconstruction technique. Coronal and sagittal reformatted images were created and reviewed. COMPARISON: CT - ABD PELVIS PO IV CONTRAST 2017-08-19 21:52 FINDINGS: Lower thorax: A small hiatal hernia is present. There is minimal bibasilar atelectasis. ABDOMEN: Again demonstrated is stranding of the fat at the mesenteric root in the upper abdomen. There are a few scattered mildly prominent mesenteric lymph nodes measuring up to 11 mm. Liver: The liver is within normal limits for this noncontrast study. Gallbladder and bile ducts: Unremarkable. No calcified stones. No ductal dilation. Pancreas: Unremarkable. No ductal dilation. Spleen: Unremarkable. No splenomegaly. Adrenals: Unremarkable. No mass. Kidneys and ureters: Horseshoe kidney. Nonobstructing 4 mm stone in the right kidney. Stomach and bowel: The descending colon and sigmoid are thick walled without significant adjacent inflammatory stranding. Findings could be secondary to mild colitis or nondistention. Appendix: A normal appendix is identified. PELVIS: Bladder: Unremarkable. No stones. Reproductive: Again demonstrated is a fat density lesion in the right pelvis measuring 4.5 x 3 cm most likely an ovarian dermoid. ABDOMEN and PELVIS: Intraperitoneal space: Unremarkable. No free air. No significant fluid collection. Bones/joints: Degenerative changes. No acute fracture. No dislocation. Soft tissues: Unremarkable. Vasculature: The vasculature demonstrates diffuse mild atherosclerotic calcification. No abdominal aortic aneurysm. IMPRESSION: Mildly thickwalled descending and sigmoid colon secondary to acute colitis or nondistention. Clinical correlation recommended. Horseshoe kidney. Nonobstructing right renal stone. Probable right ovarian dermoid, unchanged.
--- NOTE | 2018-01-21 09:13 | RAD ---
HISTORY: Weakness COMPARISON: Chest radiograph dated 09/24/2017. TECHNIQUE: Chest PA and lateral FINDINGS: LUNGS: No active pulmonary disease. PLEURA: No significant pleural effusion identified. No pneumothorax apparent. CARDIOVASCULAR: Atherosclerotic aortic calcifications. Cardiomediastinal silhouette stably prominent. OSSEOUS STRUCTURES: Unchanged. VISUALIZED UPPER ABDOMEN: Normal. OTHER FINDINGS: None. IMPRESSION: No active disease.
--- NOTE | 2018-01-21 19:10 | CARD ---
APPROVED REPORT EKG Measurement Heart [id number] <Conclusion> Sinus rhythm with occasional premature ventricular complexes Moderate voltage criteria for LVH, may be normal variant Borderline ECG
== END 2018-01-21 01:00 | disposition home or self-care (01) ==
LOC: H.ER 17:56
DX: R53.1 Weakness (principal); E11.9 Type 2 diabetes mellitus without complications; E78.00 Pure hypercholesterolemia, unspecified; Z79.84 Long term (current) use of oral hypoglycemic drugs; Q63.1 Lobulated, fused and horseshoe kidney; I49.3 Ventricular premature depolarization; K52.9 Noninfective gastroenteritis and colitis, unspecified; N20.0 Calculus of kidney
CPT/HCPCS: 71046; 74176; 80053; 81003; 82948; 85025; 85610; 85730; 87040; 93005; 99284; J7040

== ENCOUNTER 2018-01-23 07:35 | Emergency (ER) | payer MEDICARE ==
[2018-01-23 07:42] VITALS: BMI 27.8
--- NOTE | 2018-01-23 08:19 | ED PDOC ---
HPI: Female Pain Time Seen by Provider: 01/23/18 07:44 Chief Complaint (Nursing): Female Genitourinary History Per: Patient History/Exam Limitations: no limitations Onset/Duration Of Symptoms: Days Current Symptoms Are (Timing): Still Present Associated Symptoms: Urinary Symptoms (hesitancy). denies: Nausea, Vomiting, Diarrhea, Chest Pain Additional Complaint(s): Taina Shipley is a 77 year old female, whose past medical history includes hypercholesterolemia and diabetes, who presents to the emergency department complaining of suprapubic abdominal pain and describes it as "feeling hot" in the pelvic area. Patient has been evaluated in the ED on 01/20/18/ for the same complaint. She reports also having hesitancy and notes her PMD prescribed her medication and has been non-compliant with given instructions. Patient denies chest pain, shortness of breath, headache, fever, chills, cough, nausea, vomiting, diarrhea, changes in bowel habits, dysuria, hematuria, or vaginal discharge. Abnormal Vaginal Bleeding: No Past Medical History Reviewed: Historical Data, Nursing Documentation, Vital Signs Vital Signs: Last Vital Signs Temp 97 F L 01/23/18 07:41 Pulse 72 01/23/18 07:41 Resp BP 173/65 H 01/23/18 07:41 Pulse Ox 97 01/23/18 07:41 - Medical History PMH: Diabetes, Hypercholesterolemia Denies: Chronic Kidney Disease - Family History Family History: States: Diabetes - Home Medications Home Medications: Ambulatory Orders Medication Instructions Recorded SITagliptin [Januvia] 100 mg PO DAILY #0 tab 12/11/15 GlipiZIDE SR [Glucotrol XL] 10 mg PO BRK tab 08/29/17 Lactobacillus Acidophilus [Bacid 1 cap PO BID cap 08/29/17 Acidophilus] MetFORMIN [glucoPHAGE] 1,000 mg PO BID tab 08/29/17 Pantoprazole [Protonix EC Tab] 40 mg PO DAILY ect 08/29/17 amLODIPine [Norvasc] 5 mg PO DAILY tab 08/29/17 Ibuprofen [Motrin] 600 mg PO Q6H PRN #20 tab 01/23/18 Moxifloxacin [Avelox] 400 mg PO DAILY #6 tab 01/23/18 - Allergies Allergies/Adverse Reactions: Allergies Allergy/AdvReac Type Severity Reaction Status Date / Time vancomycin Allergy ITCHING Verified 01/20/18 18:41 Review of Systems Constitutional: Negative for: Fever Cardiovascular: Negative for: Chest Pain Respiratory: Negative for: Shortness of Breath Gastrointestinal: Positive for: Abdominal Pain (suprapubic). Negative for: Nausea, Vomiting Genitourinary Female: Positive for: Other (hesitancy). Negative for: Dysuria, Hematuria Musculoskeletal: Negative for: Back Pain Neurological: Negative for: Dizziness Physical Exam - Reviewed Nursing Documentation Reviewed: Yes Vital Signs Reviewed: Yes - Physical Exam Head Exam: Positive for: ATRAUMATIC, NORMAL INSPECTION, NORMOCEPHALIC Skin: Positive for: Normal Color, Warm, DRY Eye Exam: Positive for: EOMI, Normal appearance, PERRL Cardiovascular/Chest: Positive for: Regular Rate, Rhythm Respiratory: Positive for: CNT, Normal Breath Sounds Gastrointestinal/Abdominal: Positive for: Bowel Sounds (normal), Tenderness ( mild suprapubic tenderss). Negative for: Normal Exam, Distended, Guarding, Rebound Pelvic Exam: Positive for: Other (customer success advocate: Kyra Kelly). Negative for: Active Bleeding, Blood, Discharge Neurologic/Psych: Positive for: Alert, regulatory submissions associate II-XII (Normal), Oriented - Laboratory Results Result Diagrams: 01/23/18 09:20 01/23/18 09:20 - ECG O2 Sat by Pulse Oximetry: 97 (room air) Pulse Ox Interpretation: Normal Medical Decision Making Medical Decision Making: Impression: 77 y/o female with mild suprapubic tenderness c/o abdominal pain and hesitancy. Differential Diagnosis included but are not limited to: Plan: -- CT abdomen and pelvis -- Labs -- Omnipaque -- Reassess and disposition Accession No. : [id number] Patient Name / ID : TAVO LONGORIA / [id number] Exam Date : 01/23/2018 11:27:02 ( Approved ) Study Comment : Sex / Age : F / 77Y Creator : Tha Friend MD Dictator : Tha Friend MD Curbstone Setter : Photoengraving Retoucher : Tha Friend MD Approver2 : Report Date : 01/23/2018 11:59:36 My Comment : PROCEDURE: CT Abdomen and Pelvis with contrast HISTORY: Suprapubic pain COMPARISON: None. TECHNIQUE: Contrast dose: Omnipaque 300, 95 Radiation dose: Total exam DLP = 735.35 mGy-cm. This CT exam was performed using one or more of the following dose reduction techniques: Automated exposure control, adjustment of the mA and/or kV according to patient size, and/or use of iterative reconstruction technique. FINDINGS: LOWER THORAX: Cardiomegaly is again evident as well as a small hiatal hernia and trace bilateral basilar dependent atelectasis. LIVER: Hepatic steatosis reiterated. No interval liver changes noted. GALLBLADDER AND BILE DUCTS: Mildly distended without cholelithiasis once again. PANCREAS: Unremarkable. No gross lesion or ductal dilatation. SPLEEN: Unremarkable. ADRENALS: Unremarkable. No mass. KIDNEYS AND URETERS: Horseshoe again identified without suspicious enhancement pattern. VASCULATURE: Unremarkable. No aortic aneurysm. BOWEL: No bowel obstruction is appreciated there is no ascites or mesenteric edema there is no free intraperitoneal gas. Previously discussed distal descending and sigmoid mural thickening is only borderline at this point. Mesentery and bowel local to the umbilicus appear unremarkable diffusely. Moderate retained fecal material seen throughout the colon. Subcutaneous fat again appears mildly prominent which may reflect inflammatory bowel process or chronic basis. Clinically correlate further. No colonic diverticular changes. APPENDIX: Normal appendix. PERITONEUM: As above. LYMPH NODES: Unremarkable. No enlarged lymph nodes. BLADDER: Unremarkable. REPRODUCTIVE: Stable 4.2 cm right ovarian dermoid lesion. BONES: Multilevel degenerative spondylosis throughout the visualized thoracolumbar spine again evident. OTHER FINDINGS: None. IMPRESSION: 1. No overt colitis patterns appreciated this time though mild prominence of the subcutaneous fat in the sigmoid colon may reflect chronic inflammatory bowel process. Clinically correlate further. No bowel or urinary tract obstruction, mesenteric edema, ascites or free intraperitoneal gas identified. 2. Hepatic steatosis reiterated. 3. Horseshoe kidney, nonobstructive. 4. Right ovarian dermoid appears stable. Scribe Attestation: Documented by Adri Valadez acting as a scribe for Susanne Khan MD. MD Stark Attestation: All medical record entries made by the Mi were at my direction and personally dictated by me. I have reviewed the chart and agree that the record accurately reflects my personal performance of the history, physical exam, medical decision making, and the department course for this patient. I have also personally directed, reviewed, and agree with the discharge instructions and disposition. Disposition - Clinical Impression Clinical Impression: Abdominal pain - Disposition Referrals: Darren Coelho MD [Staff Provider] - Disposition: Routine/Home Disposition Time: 13:02 Condition: STABLE Additional Instructions: DISCONTINUE CIPROFLOXACIN. Prescriptions: Ibuprofen [Motrin] 600 mg PO Q6H PRN #20 tab PRN Reason: Pain, Moderate (4-7) Moxifloxacin [Avelox] 400 mg PO DAILY #6 tab Instructions: Acute Abdomen (Belly Pain), Adult (DC) Forms: [facility] (Polish) Print Language: JAPANESE
[2018-01-23] MEDS ORDERED: Iohexol 240 (50 ml) PO STA (08:47)
[2018-01-23 09:09] LABS: SQUAMOUS EPITHIAL < 1 /hpf (0-5); URINE BILIRUBIN NEGATIVE (NEGATIVE); URINE BLOOD NEGATIVE (NEGATIVE); URINE CLARITY SLIGHTY-CLOUDY (Clear); URINE COLOR YELLOW (YELLOW); URINE GLUCOSE (UA) NEG (Normal); URINE LEUKOCYTE ESTERASE NEG Leu/uL (Negative); URINE NITRATE NEGATIVE (NEGATIVE); URINE PROTEIN NEGATIVE (NEGATIVE); URINE UROBILINOGEN 0.2-1.0 mg/dL (0.2-1.0)
[2018-01-23 09:27] LABS: BASO # 0.1 K/uL (0.0-0.2); BASO % 0.9 % (0.0-2.0); EOS # 0.1 K/uL (0.0-0.7); EOS % 1.3 % (0.0-4.0); HEMOGLOBIN 13.5 g/dL (12.0-16.0); LYMPH # 1.7 K/uL (1.0-4.3); LYMPH % 28.4 % (20.0-40.0); MEAN CORPUSCULAR HEMOGLOBIN 30.7 pg (27.0-31.0); MEAN CORPUSCULAR HGB CONC 33.8 g/dL (33.0-37.0); MEAN PLATELET VOLUME 8.6 fl (7.2-11.7); MONO # 0.5 K/uL (0.0-0.8); MONO % 8.1 % (0.0-10.0); NEUT # 3.8 K/uL (1.8-7.0); NEUT % 61.3 % (50.0-75.0); NRBC % 0.1 % (0.0-0.0); RBC 4.39 Mil/uL (3.80-5.20); RED CELL DISTRIBUTION WIDTH 13.9 % (11.5-14.5); WHITE BLOOD COUNT 6.2 K/uL (4.8-10.8)
[2018-01-23 09:43] LABS: ALB/GLOB RATIO 1.4 (1.0-2.1); ALBUMIN 4.1 g/dL (3.5-5.0); ALT/SGPT 31 U/L (9-52); AST/SGOT 22 U/L (14-36); BLOOD UREA NITROGEN 19 mg/dl (7-17); CALCIUM 9.9 mg/dL (8.4-10.2); GFR AFRICAN-AMERICAN > 60; GFR NON-AFRICAN AMERICAN > 60
[2018-01-23] MEDS ORDERED: Iohexol 300 100 ML IJ ONE (10:16)
[2018-01-23] MEDS ORDERED: Sodium Chloride 0.9% 100 ML ONE (10:16)
--- NOTE | 2018-01-23 12:01 | CT ---
PROCEDURE: CT Abdomen and Pelvis with contrast HISTORY: Suprapubic pain COMPARISON: None. TECHNIQUE: Contrast dose: Omnipaque 300, 95 Radiation dose: Total exam DLP = 735.35 mGy-cm. This CT exam was performed using one or more of the following dose reduction techniques: Automated exposure control, adjustment of the mA and/or kV according to patient size, and/or use of iterative reconstruction technique. FINDINGS: LOWER THORAX: Cardiomegaly is again evident as well as a small hiatal hernia and trace bilateral basilar dependent atelectasis. LIVER: Hepatic steatosis reiterated. No interval liver changes noted. GALLBLADDER AND BILE DUCTS: Mildly distended without cholelithiasis once again. PANCREAS: Unremarkable. No gross lesion or ductal dilatation. SPLEEN: Unremarkable. ADRENALS: Unremarkable. No mass. KIDNEYS AND URETERS: Horseshoe again identified without suspicious enhancement pattern. VASCULATURE: Unremarkable. No aortic aneurysm. BOWEL: No bowel obstruction is appreciated there is no ascites or mesenteric edema there is no free intraperitoneal gas. Previously discussed distal descending and sigmoid mural thickening is only borderline at this point. Mesentery and bowel local to the umbilicus appear unremarkable diffusely. Moderate retained fecal material seen throughout the colon. Subcutaneous fat again appears mildly prominent which may reflect inflammatory bowel process or chronic basis. Clinically correlate further. No colonic diverticular changes. APPENDIX: Normal appendix. PERITONEUM: As above. LYMPH NODES: Unremarkable. No enlarged lymph nodes. BLADDER: Unremarkable. REPRODUCTIVE: Stable 4.2 cm right ovarian dermoid lesion. BONES: Multilevel degenerative spondylosis throughout the visualized thoracolumbar spine again evident. OTHER FINDINGS: None. IMPRESSION: 1. No overt colitis patterns appreciated this time though mild prominence of the subcutaneous fat in the sigmoid colon may reflect chronic inflammatory bowel process. Clinically correlate further. No bowel or urinary tract obstruction, mesenteric edema, ascites or free intraperitoneal gas identified. 2. Hepatic steatosis reiterated. 3. Horseshoe kidney, nonobstructive. 4. Right ovarian dermoid appears stable.
[2018-01-23 12:24] VITALS: BP 140/72; PULSE 71; RESP 18; TEMP 98.3
[2018-01-24 08:47] VITALS: O2SAT 97
== END 2018-01-23 13:39 | disposition home or self-care (01) ==
LOC: H.ER 07:35
DX: R10.9 Unspecified abdominal pain (principal); E11.9 Type 2 diabetes mellitus without complications; E78.00 Pure hypercholesterolemia, unspecified; Q63.1 Lobulated, fused and horseshoe kidney; Z79.84 Long term (current) use of oral hypoglycemic drugs; K76.0 Fatty (change of) liver, not elsewhere classified
CPT/HCPCS: 74177; 80053; 81003; 85025; 99285; Q9966; Q9967

== ENCOUNTER 2018-03-29 11:26 | Emergency (ER) | payer MEDICARE ==
[2018-03-29 11:26] VITALS: BMI 27.8
[2018-03-29 12:41] LABS: BASO # 0.1 K/uL (0.0-0.2); BASO % 0.7 % (0.0-2.0); EOS % 0.7 % (0.0-4.0); HEMOGLOBIN 14.5 g/dL (12.0-16.0); LYMPH # 2.4 K/uL (1.0-4.3); LYMPH % 35.5 % (20.0-40.0); MEAN CELL VOLUME 90.6 fl (81.0-99.0); MEAN CORPUSCULAR HEMOGLOBIN 31.2 pg (27.0-31.0); MEAN CORPUSCULAR HGB CONC 34.4 g/dL (33.0-37.0); MEAN PLATELET VOLUME 8.5 fl (7.2-11.7); MONO # 0.6 K/uL (0.0-0.8); MONO % 8.3 % (0.0-10.0); NEUT # 3.7 K/uL (1.8-7.0); NEUT % 54.8 % (50.0-75.0); NRBC % 0.1 % (0.0-0.0); RBC 4.64 Mil/uL (3.80-5.20); RED CELL DISTRIBUTION WIDTH 13.6 % (11.5-14.5); WHITE BLOOD COUNT 6.8 K/uL (4.8-10.8)
[2018-03-29 12:56] LABS: SQUAMOUS EPITHIAL < 1 /hpf (0-5); URINE BILIRUBIN NEGATIVE (NEGATIVE); URINE BLOOD NEGATIVE (NEGATIVE); URINE CLARITY CLEAR (Clear); URINE COLOR YELLOW (YELLOW); URINE GLUCOSE (UA) >=500 mg/dL (Normal); URINE LEUKOCYTE ESTERASE NEG Leu/uL (Negative); URINE PROTEIN 30 mg/dL (NEGATIVE); URINE UROBILINOGEN 0.2-1.0 mg/dL (0.2-1.0)
[2018-03-29 13:00] LABS: ALB/GLOB RATIO 1.4 (1.0-2.1); ALBUMIN 4.4 g/dL (3.5-5.0); ALT/SGPT 39 U/L (9-52); AST/SGOT 25 U/L (14-36); BLOOD UREA NITROGEN 15 mg/dl (7-17); CALCIUM 10.3 mg/dL (8.4-10.2); GFR AFRICAN-AMERICAN > 60; GFR NON-AFRICAN AMERICAN > 60; LIPASE 107 U/L (23-300)
--- NOTE | 2018-03-29 13:00 | ED PDOC ---
HPI: Abdomen Time Seen by Provider: 03/29/18 11:52 Chief Complaint (Nursing): Abdominal Pain Chief Complaint (Provider): upper abdominal pain History Per: Patient History/Exam Limitations: no limitations Onset/Duration Of Symptoms: Days (7), Intermittent Episodes, Gradual Current Symptoms Are (Timing): Intermittent Episodes Severity: Mild Location Of Pain/Discomfort: Epigastric Quality Of Discomfort: Unable To Describe Associated Symptoms: Nausea. denies: Diarrhea, Loss Of Appetite Exacerbating Factors: None Alleviating Factors: None Additional Complaint(s): 77yo female c/o upper abdominal pain intermittent since last thursday. She is requesting Dr Coelho for evaluation and unwilling to give jingle writer full history or physical exam. Denies melena, fever, syncope, chest pain or SOB. Past Medical History Reviewed: Historical Data, Nursing Documentation, Vital Signs Vital Signs: Last Vital Signs Temp 98.7 F 03/29/18 11:51 Pulse 78 03/29/18 11:51 Resp 20 03/29/18 11:51 BP Pulse Ox 100 03/29/18 12:59 - Medical History PMH: Diabetes, Hypercholesterolemia Denies: Chronic Kidney Disease - Surgical History Surgical History: No Surg Hx - Family History Family History: States: Diabetes - Social History Current smoker - smoking cessation education provided: No - Home Medications Home Medications: Ambulatory Orders Medication Instructions Recorded SITagliptin [Januvia] 100 mg PO DAILY #0 tab 12/11/15 GlipiZIDE SR [Glucotrol XL] 10 mg PO BRK tab 08/29/17 Lactobacillus Acidophilus [Bacid 1 cap PO BID cap 08/29/17 Acidophilus] MetFORMIN [glucoPHAGE] 1,000 mg PO BID tab 08/29/17 Pantoprazole [Protonix EC Tab] 40 mg PO DAILY ect 08/29/17 amLODIPine [Norvasc] 5 mg PO DAILY tab 08/29/17 Ibuprofen [Motrin] 600 mg PO Q6H PRN #20 tab 01/23/18 Moxifloxacin [Avelox] 400 mg PO DAILY #6 tab 01/23/18 Ranitidine HCl [Zantac] 150 mg PO BID #20 tablet 03/29/18 - Allergies Allergies/Adverse Reactions: Allergies Allergy/AdvReac Type Severity Reaction Status Date / Time vancomycin Allergy ITCHING Verified 01/20/18 18:41 Review of Systems ROS Statement: Except As Marked, All Systems Reviewed And Found Negative Constitutional: Negative for: Fever ENT: Negative for: Ear Pain Cardiovascular: Negative for: Chest Pain Respiratory: Negative for: Cough Gastrointestinal: Positive for: Nausea, Abdominal Pain Genitourinary Female: Negative for: Dysuria Musculoskeletal: Negative for: Neck Pain, Back Pain Skin: Negative for: Rash, Lesions Neurological: Negative for: Weakness, Numbness, Headache Physical Exam - Reviewed Nursing Documentation Reviewed: Yes Vital Signs Reviewed: Yes - Physical Exam Appears: Positive for: Well, Non-toxic, No Acute Distress Head Exam: Positive for: ATRAUMATIC, NORMAL INSPECTION, NORMOCEPHALIC Skin: Positive for: Normal Color, Warm, DRY Eye Exam: Positive for: EOMI, Normal appearance, PERRL ENT: Positive for: Normal ENT Inspection Neck: Positive for: Normal, Painless ROM Cardiovascular/Chest: Positive for: Regular Rate, Rhythm Respiratory: Positive for: CNT, Normal Breath Sounds Gastrointestinal/Abdominal: Positive for: Soft, Tenderness (minimal upper abd tenderness). Negative for: Distended, Guarding, Rebound, Hernia, Asicites Back: Positive for: Normal Inspection Extremity: Positive for: Normal ROM Neurologic/Psych: Positive for: Alert, Oriented - Laboratory Results Result Diagrams: 03/29/18 12:20 03/29/18 12:20 - ECG O2 Sat by Pulse Oximetry: 100 Medical Decision Making Medical Decision Making: workup for abdominal pain was initiated labs, US abdomen ordered labs reviewed revealing only moderate hyperglycemia normal WBC, LFTs, Plant Controller and UA. US abdomen prelim no gallstones and normal visualized aorta/IVC, +horsehoe kidney D/w PMD Dr Coelho PMD who evaluated patient in ED, can be discharged and will see her in office in 2-3 days. States had endoscopy in past which was negative. Rx zantac, patient felt better on reeval and denied pain. Requested lunch which she tolerated fully and requested we call her a cab for discharge. Disposition - Clinical Impression Clinical Impression: Abdominal discomfort - Patient ED Disposition Is Patient to be Admitted: No Counseled Patient/Family Regarding: Studies Performed, Diagnosis, Need For Followup, Rx Given - Disposition Referrals: Darren Coelho MD [Family Provider] - Disposition: Routine/Home Disposition Time: 14:01 Condition: STABLE Additional Instructions: Nilda vera Laquita in 2-3 giorni per la rivalutazione. Prendere farmaci contro il diabete come indicato. Torna a ER per eventuali sintomi lily o hipolito. See Dr Coelho in 2-3 days for re-evaluation. Take diabetes medication as directed. Return to ER for any worse or new symptoms. Prescriptions: Ranitidine HCl [Zantac] 150 mg PO BID #20 tablet Instructions: Acute Abdomen (Belly Pain) Forms: [facility] (Czech)
--- NOTE | 2018-03-29 14:17 | US ---
HISTORY: Upper abdominal pain COMPARISON: CT abdomen and pelvis from 01/23/2018 TECHNIQUE: Grayscale imaging was performed. FINDINGS: LIVER: Measures 13.1 cm in length. There is mild diffuse echogenicity of the liver parenchyma. No mass. No intrahepatic bile duct dilatation. GALLBLADDER: There are no gallstones, wall thickening or pericholecystic fluid. The sonographic Jennings's sign is negative. COMMON BILE DUCT: Measures 3.6 mm. No stones. No dilatation. PANCREAS: Unremarkable as visualized. No mass. No ductal dilatation. RIGHT KIDNEY: Measures 8.7 cm in length. Horseshoe configuration of the kidneys. Normal echogenicity. No calculus, mass, or hydronephrosis. AORTA: No aneurysmal dilatation. IVC: Unremarkable. OTHER FINDINGS: None . IMPRESSION: No cholelithiasis or biliary dilatation. Fatty liver.
[2018-03-29 14:54] VITALS: BP 129/77; PULSE 79; RESP 16; TEMP 98; O2SAT 97
== END 2018-03-29 14:55 | disposition home or self-care (01) ==
LOC: H.ER 11:26
DX: R10.9 Unspecified abdominal pain (principal); E11.9 Type 2 diabetes mellitus without complications; Z79.84 Long term (current) use of oral hypoglycemic drugs; E78.00 Pure hypercholesterolemia, unspecified